=== PATIENT | female | born 1980 | race Caucasian/White ===

== ENCOUNTER 2017-03-01 17:10 | Emergency (ER) | payer OTHER ==
--- NOTE | 2017-03-01 17:45 | ED Physician Documentation ---
PD HPI ABD PAIN - Stated complaint Stated Complaint: LOW RT RIB PX - Chief complaint Chief Complaint: Abd Pain - History obtained from History obtained from: Patient - History of Present Illness Timing - onset: Other (2 days of right flank pain, she felt dizzy the other night but now it is just the pain. No urinary complaints.) Review of Systems Constitutional: reports: Fatigue. 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 - Present Medications Home Medications: Ambulatory Orders Medication Instructions Recorded Confirmed Meloxicam [Mobic] 7.5 mg PO BIDWM PRN #15 tablet 03/01/17 - Allergies Allergies/Adverse Reactions: Allergies Allergy/AdvReac Type Severity Reaction Status Date / Time aspirin Allergy Unknown Verified 03/01/17 17:22 - Social History Does the pt smoke?: No Smoking Status: Never smoker Does the pt drink ETOH?: No Does the pt have substance abuse?: No PD ED PE NORMAL - Vitals Vital signs reviewed: Yes - General General: Alert and oriented X 3, No acute distress - Abdomen Abdomen: Normal bowel sounds, Soft, Non tender - Back Back: Other (Tender to the right CVA) - Psych Psych: Normal mood, Normal affect Results - Vitals Vitals: Vital Signs - 24 hr 03/01/17 03/01/17 17:19 19:42 Temperature 37.3 C 37.2 C Heart Rate 105 H 90 Respiratory 17 18 Rate Blood Pressure 134/78 H 121/82 H O2 Saturation 99 100 Oxygen O2 Source Room air - Labs Labs: Laboratory Tests 03/01/17 03/01/17 03/01/17 17:20 18:35 18:35 WBC 6.3 RBC 4.87 Hgb 13.8 Hct 41.7 MCV 85.8 MCH 28.3 MCHC 33.0 RDW 13.3 Plt Count 330 MPV 7.6 L Neut # 3.1 Lymph # 2.6 [place] # 0.4 Eos # 0.1 Baso # 0.0 Absolute Nucleated RBC 0.00 Nucleated RBC % 0.1 Sodium 137 Potassium 3.7 Chloride 101 Carbon Dioxide 24 Anion Gap 12.0 BUN 12 Creatinine 0.6 Estimated GFR (MDRD) 114 Glucose 98 Calcium 9.4 Total Bilirubin 0.4 AST 19 ALT 16 Alkaline Phosphatase 67 Total Protein 8.5 H Albumin 4.3 Globulin 4.2 Albumin/Globulin Ratio 1.0 Lipase 17 L Urine Color YELLOW Urine Clarity CLEAR Urine pH 6.0 Ur Specific [place] <=1.005 Urine Protein NEGATIVE Urine Glucose (UA) NEGATIVE Urine Ketones TRACE Urine Occult Blood TRACE-INTA Urine Nitrite NEGATIVE Urine Bilirubin NEGATIVE Urine Urobilinogen 0.2 (NORMAL) Ur Leukocyte Esterase NEGATIVE Ur Microscopic Review NOT INDICATED Urine Culture Comments NOT INDICATED Urine HCG, Qual NEGATIVE - Rads (name of study) CT A/P Radiology: EMP read contemporaneously (normal) PD MEDICAL DECISION MAKING - ED course ED course: 37-year-old woman with right flank pain. Her urinalysis was negative and this was followed by advanced imaging and blood work without relevant findings. On further history it sounds like she has had recurrent symptoms like this for quite some time with previous negative workups. She had specific concerns about cancer given that her sibling also had similar symptoms and it turned out to be cancer but there is no evidence of this and she was reassured. Departure - Departure Disposition: 01 Home, Self Care Clinical Impression: Right flank pain Condition: Good Record reviewed to determine appropriate education?: Yes Instructions: Abdominal Pain Prescriptions: Meloxicam [Mobic] 7.5 mg PO BIDWM PRN #15 tablet PRN Reason: Pain Comments: Call your doctor to arrange a follow-up appointment, make the next available appointment. In the interim, return anytime if worse or if new symptoms develop. Your blood pressure was elevated today on check into the emergency department. This does not mean that you have hypertension, it is a common phenomenon to come to the emergency department and have elevated blood pressure. I recommend that you see your primary care physician within the week to have it rechecked when you are feeling better.
[2017-03-01 17:52] LABS: BILIRUBIN,URINE NEGATIVE (NEGATIVE); GLUCOSE, URINE (UA) NEGATIVE (NEGATIVE); KETONES,URINE (UA) TRACE mg/dL (NEGATIVE); LEUKOCYTE ESTERASE, URINE NEGATIVE (NEGATIVE); NITRITE,URINE NEGATIVE (NEGATIVE); OCCULT BLOOD,URINE TRACE-INTA (NEGATIVE); PROTEIN,URINE NEGATIVE (NEGATIVE); UROBILINOGEN,URINE 0.2 (NORMAL) E.U./dL (NORMAL)
[2017-03-01 17:55] LABS: CLARITY,URINE CLEAR (CLEAR); HCG UR QUAL NEGATIVE
[2017-03-01] MEDS ORDERED: KETOROLAC 60 MG/2 ML VIAL IVP STA (18:20)
[2017-03-01 18:53] LABS: BASOPHILS % (AUTO) 0.6 %; EOSINOPHILS # (AUTO) 0.1 10^3/uL (0.0-0.7); EOSINOPHILS % (AUTO) 1.8 %; HGB - HEMOGLOBIN 13.8 g/dL (12.0-16.0); LYMPHOCYTES # (AUTO) 2.6 10^3/uL (1.5-3.5); LYMPHOCYTES % (AUTO) 41.1 %; MEAN CORPUSCULAR HEMOGLOBIN 28.3 pg (27.0-31.0); MEAN CORPUSCULAR VOLUME 85.8 fL (81.0-99.0); MEAN PLATELET VOLUME 7.6 fL (7.9-10.8); MONOCYTES # (AUTO) 0.4 10^3/uL (0.0-1.0); MONOCYTES % (AUTO) 6.8 %; NEUTROPHILS # (AUTO) 3.1 10^3/uL (1.5-6.6); NEUTROPHILS % (AUTO) 49.7 %; PLT - PLATELET COUNT 330 10^3/uL (130-450); RED BLOOD COUNT 4.87 10^6/uL (4.20-5.40); RED CELL DISTRIBUTION WIDTH 13.3 % (12.0-15.0); WHITE BLOOD COUNT 6.3 x10^3/uL (4.8-10.8)
[2017-03-01 19:11] LABS: ALBUMIN 4.3 g/dL (3.2-5.5); BILIRUBIN,TOTAL 0.4 mg/dL (0.2-1.0); CALCIUM 9.4 mg/dL (8.5-10.3); CREATININE 0.6 mg/dL (0.4-1.0); TOTAL PROTEIN 8.5 g/dL (6.7-8.2)
[2017-03-01] MEDS ORDERED: IOPAMIDOL-300 100 ML VIAL ONE (19:21)
[2017-03-01] MEDS ORDERED: IOPAMIDOL-300 100 ML VIAL IVP ONE (19:43)
--- NOTE | 2017-03-01 20:24 | CT Report ---
EXAM: CT ABDOMEN AND PELVIS EXAM DATE: 03/01/2017 07:33 PM. CLINICAL HISTORY: Right abdominal pain COMPARISONS: None. TECHNIQUE: Routine helical CT imaging was performed through the abdomen and pelvis. IV contrast: 100 ML ISOVUE 300. Enteric contrast: No. Reconstructions: Coronal and sagittal. In accordance with CT protocol optimization, one or more of the following dose reduction techniques w ere utilized for this exam: automated exposure control, adjustment of mA and/or KV based on patient s ize, or use of iterative reconstructive technique. FINDINGS: Lung Bases: Unremarkable. Liver: Within normal limits. Normal variant focal fat adjacent to the falx from ligament. Gallbladder/Bile Ducts: Unremarkable. Spleen: Normal. Pancreas: Normal. Adrenal Glands: Normal. Kidneys: Normal. No masses or hydronephrosis. Peritoneal Cavity/Bowel: Normal. No free fluid, free air or adenopathy. No masses or acute inflammato ry process. Normal appendix. Pelvic Organs: Normal. The bladder and visualized pelvic organs are within normal limits. Vasculature: No aneurysms or other significant abnormality. Bones: No significant abnormality. IMPRESSION: Normal abdomen and pelvis CT. [facility] Referring Provider Line: [phone] SITE ID: [id number]
[2017-03-01 21:00] VITALS: BP 112/90
== END 2017-03-01 21:03 | disposition home or self-care (01) ==
LOC: ED 17:10
DX: R10.31 Right lower quadrant pain (principal); R03.0 Elevated blood-pressure reading, without diagnosis of hypertension; J45.909 Unspecified asthma, uncomplicated; E03.9 Hypothyroidism, unspecified
CPT/HCPCS: 36415; 74177; 80053; 81003; 81025; 83690; 85025; 96374; 99283; 99284; Q9967; 81001; 87086

== ENCOUNTER 2017-08-21 23:02 | Emergency (ER) | payer OTHER ==
[2017-08-21 23:09] VITALS: BP 126/76
[2017-08-21 23:22] LABS: LEUKOCYTE ESTERASE, URINE LARGE (NEGATIVE); OCCULT BLOOD,URINE MODERATE (NEGATIVE)
[2017-08-21 23:29] LABS: CLARITY,URINE HAZY (CLEAR)
[2017-08-21 23:31] LABS: BILIRUBIN,URINE NEGATIVE (NEGATIVE); ICTOTEST,URINE NEGATIVE; SQUAMOUS EPITHELIAL CELL,UR FEW Squamous (<= Few)
[2017-08-21 23:32] LABS: BACTERIA,URINE Few /HPF (None Seen)
[2017-08-21] MEDS ORDERED: cephALEXin 250 MG CAPSULE PO STA (23:41)
--- NOTE | 2017-08-21 23:41 | ED Physician Documentation ---
PD HPI FEMALE - Stated complaint Stated Complaint: FEMALE - Chief complaint Chief Complaint: UTI - History obtained from History obtained from: Patient - History of Present Illness Timing - onset: How many days ago (5) Timing - duration: Days (5) Timing - details: Gradual onset Pain level max: 5 Pain level max: 4 Associated symptoms: Fever (felt warm earlier), Back pain (low back), Dysuria, Urinary frequency. No: Pelvic pain, Vaginal pain, Vaginal bleeding, Vaginal discharge, Hematuria Contributing factors: No: Similar symptoms before: Diagnosis (UTI) Recently seen: Not recently seen Review of Systems Constitutional: denies: Chills, Myalgias Ears: denies: Ear pain Nose: denies: Rhinorrhea / runny nose, Congestion Throat: denies: Sore throat Cardiac: denies: Chest pain / pressure Respiratory: denies: Cough GI: denies: Vomiting, Diarrhea : denies: Discharge Skin: denies: Rash Musculoskeletal: denies: Neck pain Neurologic: denies: Headache PD PAST MEDICAL HISTORY - Past Medical History Past Medical History: Yes Respiratory: Asthma Endocrine/Autoimmune: HyPOthyroidism - Past Surgical History Past Surgical History: Yes 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 - Present Medications Home Medications: Ambulatory Orders Medication Instructions Recorded Confirmed Meloxicam [Mobic] 7.5 mg PO BIDWM PRN #15 tablet 03/01/17 Ciprofloxacin HCl [Cipro] 500 mg PO BID #20 tablet 08/21/17 Hydrocodone/Acetaminophen 1 - 2 each PO Q6H PRN #10 tablet 08/21/17 [Hydrocodon-Acetaminophen 5-325] Promethazine [Phenergan] 25 mg PO Q6H PRN #10 tab 08/21/17 - Allergies Allergies/Adverse Reactions: Allergies Allergy/AdvReac Type Severity Reaction Status Date / Time aspirin Allergy Unknown Verified 08/21/17 23:09 - Social History Does the pt smoke?: No Smoking Status: Never smoker Does the pt drink ETOH?: No Does the pt have substance abuse?: No PD ED PE NORMAL - Vitals Vital signs reviewed: Yes - General General: Alert and oriented X 3, No acute distress - HEENT HEENT: Moist mucous membranes - Neck Neck: Supple, no meningeal sign - Cardiac Cardiac: RRR - Respiratory Respiratory: No respiratory distress, Clear bilaterally - Abdomen Abdomen: Soft, Non tender, Non distended - Back Back: Other (R cvat) - Derm Derm: Warm and dry - Extremities Extremities: No edema - Neuro Neuro: Alert and oriented X 3 - Psych Psych: Normal mood, Normal affect Results - Vitals Vitals: Vital Signs - 24 hr 08/21/17 23:07 Temperature 36.8 C Heart Rate 96 Respiratory 18 Rate Blood Pressure 126/76 O2 Saturation 99 Oxygen O2 Source Room air - Labs Labs: Laboratory Tests 08/21/17 23:15 Urine Color ORANGE Urine Clarity HAZY Urine pH 7.0 Ur Specific [place] Urine Protein Urine Glucose (UA) Urine Ketones Urine Occult Blood MODERATE H Urine Nitrite Urine Bilirubin NEGATIVE Urine Urobilinogen Ur Leukocyte Esterase LARGE H Urine RBC 11-25 H Urine WBC 11-25 H Ur Squamous Epith Cells FEW Squamous Urine Bacteria Few Ur Microscopic Review INDICATED Urine Culture Comments INDICATED PD MEDICAL DECISION MAKING - ED course Complexity details: reviewed results, re-evaluated patient, considered differential, d/w patient ED course: Patient is a 37-year-old female who presents to the emergency department UTI symptoms for the past several days, now spreading up to the right flank. Concern for early pyelonephritis. She is very well-appearing, nontoxic. Tolerating p.o. without difficulty here. Will place on ciprofloxacin, Phenergan and pain medication for home. Patient counseled regarding signs and symptoms for which I believe and urgent re-evaluation would be necessary. Patient with good understanding of and agreement to plan and is comfortable going home at this time This document was made in part using voice recognition software. While efforts are made to proofread this document, sound alike and grammatical errors may occur. Afebrile. No evidence of ureteral stone, urosepsis. - Sepsis Event Vital Signs: Vital Signs - 24 hr 08/21/17 23:07 Temperature 36.8 C Heart Rate 96 Respiratory 18 Rate Blood Pressure 126/76 O2 Saturation 99 Oxygen O2 Source Room air Departure - Departure Disposition: 01 Home, Self Care Clinical Impression: Pyelonephritis Condition: Good Instructions: ED Kidney Infec Female Follow-Up: your,doctor in 1 week if not better [Other] Prescriptions: Ciprofloxacin HCl [Cipro] 500 mg PO BID #20 tablet Hydrocodone/Acetaminophen [Hydrocodon-Acetaminophen 5-325] 1 - 2 each PO Q6H PRN #10 tablet PRN Reason: pain Promethazine [Phenergan] 25 mg PO Q6H PRN #10 tab PRN Reason: Nausea / Vomiting Comments: Return if you worsen. Take all antibiotics until gone. Do not drink alcohol or drive while on narcotic pain medicine. Note that many narcotic pain relievers also contain tylenol/acetaminophen. Please ensure that your total dose of acetaminophen from all sources does not exceed 3 grams (3000mg) per day. You may constipated on this medication, take a stool softener such as "Colace" twice a day while you are on it. Also recommend a [id number] laxative such as senna or MiraLAX any day that you do not have a bowel movement. If you received narcotic pain medication in the emergency department, do not drive or operate machinery for the next 24 hours. The Phenergan may also make you drowsy, do not drive or drink alcohol while taking this either.
[2017-08-21] MEDS ORDERED: HYDROcod/ACETAM 5/325 MG TABLET PO STA (23:46)
[2017-08-21] MEDS ORDERED: CIPROFLOXACIN 250 MG TABLET PO STA (23:46)
[2017-08-21] MEDS ORDERED: ONDANSETRON ODT 4 MG TABLET TL STA (23:46)
== END 2017-08-21 23:59 | disposition home or self-care (01) ==
LOC: ED 23:02
DX: N12 Tubulo-interstitial nephritis, not specified as acute or chronic (principal)
CPT/HCPCS: 81001; 81003; 87086; 87181; 99283

== ENCOUNTER 2017-12-26 13:41 | Outpatient (CLI) | payer OTHER | END 2017-12-26 13:42 | disposition critical access hospital (66) | LOC: EMS 13:41 | PROVIDERS: ATTEND Surgery | DX: R00.2 Palpitations (principal); R42 Dizziness and giddiness; R51 Headache | CPT/HCPCS: A0425; A0429 ==

== ENCOUNTER 2017-12-26 14:06 | Emergency (ER) | payer OTHER ==
[2017-12-26] MEDS ORDERED: SODIUM CHLORIDE 0.9% 1,000 ML IV ONE (15:13)
--- NOTE | 2017-12-26 15:15 | ED Physician Documentation ---
History of Present Illness - Stated complaint Stated Complaint: PALPITATIONS - Chief complaint Chief Complaint: Cardiac - History obtained from History obtained from: Patient - History of Present Illness Timing: Today - Additonal information Additional information: 37-year-old female who has been experiencing some sweats for the past several months as developed acute palpitations today while sitting on her couch. She went to her school with her son and while she dropped him off she experiences palpitations doing extreme extent and the ambulance was called to the school. She feels her heart rate is rapid and irregular. She feels some shortness of breath when this is happening as well and she feels like she will pass out. She felt like she was going to . Review of Systems Constitutional: reports: Fever, Chills, Fatigue, Sweats Eyes: denies: Decreased vision Ears: denies: Ear pain Nose: reports: Congestion Throat: denies: Sore throat Cardiac: denies: Chest pain / pressure, Palpitations Respiratory: reports: Dyspnea. 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: Breast 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 - Present Medications Home Medications: Ambulatory Orders Medication Instructions Recorded Confirmed Meloxicam [Mobic] 7.5 mg PO BIDWM PRN #15 tablet 03/01/17 Ciprofloxacin HCl [Cipro] 500 mg PO BID #20 tablet 08/21/17 Hydrocodone/Acetaminophen 1 - 2 each PO Q6H PRN #10 tablet 08/21/17 [Hydrocodon-Acetaminophen 5-325] Promethazine [Phenergan] 25 mg PO Q6H PRN #10 tab 08/21/17 - Allergies Allergies/Adverse Reactions: Allergies Allergy/AdvReac Type Severity Reaction Status Date / Time aspirin Allergy Unknown Verified 08/21/17 23:09 - Social History Does the pt smoke?: No Smoking Status: Never smoker Does the pt drink ETOH?: No Does the pt have substance abuse?: No - Immunizations Immunizations are current?: Yes - POLST Patient has POLST: No PD ED PE NORMAL - Vitals Vital signs reviewed: Yes (hypertensive ) - General General: Alert and oriented X 3, Well developed/nourished, Other (The patient appears to be anxious) - HEENT HEENT: Atraumatic, PERRL, EOMI - Neck Neck: Supple, no meningeal sign - Cardiac Cardiac: RRR, No murmur - Respiratory Respiratory: No respiratory distress, Clear bilaterally - Abdomen Abdomen: Soft, Non tender - Back Back: No CVA TTP, No spinal TTP - Derm Derm: Normal color, Warm and dry, No rash - Extremities Extremities: No deformity, No edema - Neuro Neuro: Alert and oriented X 3, senior linux unix engineer 2-12 intact, No motor deficit, No sensory deficit, Normal speech Eye Opening: Spontaneous Motor: Obeys Commands Verbal: Oriented GCS Score: 15 - Psych Psych: Normal mood, Normal affect Results - Vitals Vitals: Vital Signs - 24 hr 12/26/17 12/26/17 14:16 15:44 Temperature 37.1 C Heart Rate 87 78 Respiratory 18 18 Rate Blood Pressure 129/89 H 118/79 O2 Saturation 100 100 Oxygen O2 Source Room air - EKG (time done) 1427 Rate: Rate (enter#) (82) Rhythm: NSR Intervals: Normal [place] Compare to prior EKG: Old EKG unavailable Computer interpretation: Agree with computer - Labs Labs: Laboratory Tests 12/26/17 12/26/17 12/26/17 14:27 15:37 15:37 WBC 6.3 RBC 4.30 Hgb 12.5 Hct 36.6 L MCV 85.1 MCH 29.1 MCHC 34.2 RDW 13.3 Plt Count 253 MPV 7.9 Neut # (Auto) 3.8 Lymph # (Auto) 1.9 [place] # (Auto) 0.4 Eos # (Auto) 0.1 Baso # (Auto) 0.0 Absolute Nucleated RBC 0.00 Nucleated RBC % 0.0 Sodium 138 Potassium 3.4 L Chloride 106 Carbon Dioxide 25 Anion Gap 7.0 BUN 9 Creatinine 0.5 Estimated GFR (MDRD) 140 Glucose 89 Calcium 8.6 Total Bilirubin 0.7 AST 20 ALT 19 Alkaline Phosphatase 56 Troponin I Total Protein 7.5 Albumin 3.8 Globulin 3.7 Albumin/Globulin Ratio 1.0 Lipase 22 TSH Urine Color LT. YELLOW Urine Clarity CLEAR Urine pH 6.0 Ur Specific [place] <=1.005 Urine Protein NEGATIVE Urine Glucose (UA) NEGATIVE Urine Ketones NEGATIVE Urine Occult Blood NEGATIVE Urine Nitrite NEGATIVE Urine Bilirubin NEGATIVE Urine Urobilinogen 0.2 (NORMAL) Ur Leukocyte Esterase NEGATIVE Ur Microscopic Review NOT INDICATED Urine Culture Comments NOT INDICATED Urine HCG, Qual NEGATIVE 12/26/17 12/26/17 15:37 15:37 WBC RBC Hgb Hct MCV MCH MCHC RDW Plt Count MPV Neut # (Auto) Lymph # (Auto) [place] # (Auto) Eos # (Auto) Baso # (Auto) Absolute Nucleated RBC Nucleated RBC % Sodium Potassium Chloride Carbon Dioxide Anion Gap BUN Creatinine Estimated GFR (MDRD) Glucose Calcium Total Bilirubin AST ALT Alkaline Phosphatase Troponin I < 0.04 Total Protein Albumin Globulin Albumin/Globulin Ratio Lipase TSH 1.34 Urine Color Urine Clarity Urine pH Ur Specific [place] Urine Protein Urine Glucose (UA) Urine Ketones Urine Occult Blood Urine Nitrite Urine Bilirubin Urine Urobilinogen Ur Leukocyte Esterase Ur Microscopic Review Urine Culture Comments Urine HCG, Qual - Rads (name of study) chest 1 veiw Radiology: Prelim report reviewed (Impression: Normal single view chest.), EMP read indepedently, See rad report Procedures - IVC sono (time) 1505 Bedside IVC sono: IVC measures (cm) (0.88), IVC collapsed c insp (cm) (complete), Dehydration (est 1-2 liter deficit) PD MEDICAL DECISION MAKING - ED course Complexity details: reviewed results, re-evaluated patient, considered differential, d/w patient, d/w family ED course: 37-year-old female with acute onset of palpitations describes dramatic reaction to the palpitations concerning for a panic attack. She has a negative workup here today including monitoring showing sinus rhythm has been normal. She is dehydrated on interrogation of the IVC and she is administered IV saline. I discussed with her the panic attack is a diagnosis of exclusion and she will need to follow-up with her primary for further evaluation of palpitations. I have asked her to begin wearing a fit bit as well. She will have follow up with the fugitive detective as planned previously. Departure - Departure Disposition: 01 Home, Self Care Clinical Impression: Palpitations, Panic attack, Dehydration Condition: Stable Instructions: ED Panic Attack, ED Stress React, ED Palpitations, ED Dehydration Follow-Up: MARY Ferris [Provider Group]
[2017-12-26 15:41] LABS: BILIRUBIN,URINE NEGATIVE (NEGATIVE); GLUCOSE, URINE (UA) NEGATIVE (NEGATIVE); KETONES,URINE (UA) NEGATIVE (NEGATIVE); LEUKOCYTE ESTERASE, URINE NEGATIVE (NEGATIVE); NITRITE,URINE NEGATIVE (NEGATIVE); OCCULT BLOOD,URINE NEGATIVE (NEGATIVE); PROTEIN,URINE NEGATIVE (NEGATIVE); UROBILINOGEN,URINE 0.2 (NORMAL) E.U./dL (NORMAL)
[2017-12-26 15:42] LABS: CLARITY,URINE CLEAR (CLEAR)
[2017-12-26 15:43] LABS: HCG UR QUAL NEGATIVE
[2017-12-26 15:45] LABS: BASOPHILS % (AUTO) 0.7 %; EOSINOPHILS # (AUTO) 0.1 10^3/uL (0.0-0.7); EOSINOPHILS % (AUTO) 1.8 %; HGB - HEMOGLOBIN 12.5 g/dL (12.0-16.0); LYMPHOCYTES # (AUTO) 1.9 10^3/uL (1.5-3.5); LYMPHOCYTES % (AUTO) 30.1 %; MEAN CORPUSCULAR HEMOGLOBIN 29.1 pg (27.0-31.0); MEAN CORPUSCULAR HGB CONC 34.2 g/dL (32.0-36.0); MEAN CORPUSCULAR VOLUME 85.1 fL (81.0-99.0); MEAN PLATELET VOLUME 7.9 fL (7.9-10.8); MONOCYTES # (AUTO) 0.4 10^3/uL (0.0-1.0); MONOCYTES % (AUTO) 6.7 %; NEUTROPHILS # (AUTO) 3.8 10^3/uL (1.5-6.6); NEUTROPHILS % (AUTO) 60.7 %; PLT - PLATELET COUNT 253 10^3/uL (130-450); RED CELL DISTRIBUTION WIDTH 13.3 % (12.0-15.0); WHITE BLOOD COUNT 6.3 x10^3/uL (4.8-10.8)
[2017-12-26 16:00] LABS: ALBUMIN 3.8 g/dL (3.2-5.5); BILIRUBIN,TOTAL 0.7 mg/dL (0.2-1.0); CALCIUM 8.6 mg/dL (8.5-10.3); CREATININE 0.5 mg/dL (0.4-1.0); TOTAL PROTEIN 7.5 g/dL (6.7-8.2)
[2017-12-26 16:26] VITALS: BP 114/78
--- NOTE | 2017-12-26 16:28 | XRAY Report ---
Reason: palpitations Procedure Date: 12/26/2017 Accession Number: [id number] / [id number] Procedure: XR - Chest 1 View X-Ray CPT Code: 86962 FULL RESULT: EXAM: CHEST RADIOGRAPHY EXAM DATE: 12/26/2017 04:11 PM. CLINICAL HISTORY: Palpitations. COMPARISON: None. TECHNIQUE: 1 view. FINDINGS: Lungs/Pleura: No focal opacities evident. No pleural effusion. No pneumothorax. Mediastinum: Within exam limitations, the cardiomediastinal contour is normal. Other: None. IMPRESSION: Normal single view chest. [facility]
== END 2017-12-26 16:59 | disposition home or self-care (01) ==
LOC: EDUNIT# → ED 14:06
DX: F41.0 Panic disorder [episodic paroxysmal anxiety] (principal); R00.2 Palpitations; E86.0 Dehydration
CPT/HCPCS: 36415; 71045; 80053; 81001; 81003; 81025; 83690; 84443; 84484; 85025; 87086; 93005; 96360; 99283; 99284

== ENCOUNTER 2018-01-07 12:39 | Emergency (ER) | payer OTHER ==
[2018-01-07 13:22] LABS: BASOPHILS % (AUTO) 0.6 %; EOSINOPHILS # (AUTO) 0.3 10^3/uL (0.0-0.7); EOSINOPHILS % (AUTO) 3.9 %; HGB - HEMOGLOBIN 12.9 g/dL (12.0-16.0); LYMPHOCYTES # (AUTO) 2.3 10^3/uL (1.5-3.5); LYMPHOCYTES % (AUTO) 33.2 %; MEAN CORPUSCULAR HGB CONC 33.8 g/dL (32.0-36.0); MEAN CORPUSCULAR VOLUME 85.7 fL (81.0-99.0); MEAN PLATELET VOLUME 7.7 fL (7.9-10.8); MONOCYTES # (AUTO) 0.4 10^3/uL (0.0-1.0); MONOCYTES % (AUTO) 6.4 %; NEUTROPHILS # (AUTO) 3.9 10^3/uL (1.5-6.6); NEUTROPHILS % (AUTO) 55.9 %; PLT - PLATELET COUNT 292 10^3/uL (130-450); RED BLOOD COUNT 4.45 10^6/uL (4.20-5.40); RED CELL DISTRIBUTION WIDTH 13.4 % (12.0-15.0); WHITE BLOOD COUNT 6.9 x10^3/uL (4.8-10.8)
[2018-01-07 13:42] LABS: BILIRUBIN,TOTAL 0.7 mg/dL (0.2-1.0); CALCIUM 8.8 mg/dL (8.5-10.3); CREATININE 0.7 mg/dL (0.4-1.0)
--- NOTE | 2018-01-07 15:46 | ED Physician Documentation ---
History of Present Illness - Stated complaint Stated Complaint: HEART PALPITATION - Chief complaint Chief Complaint: Cardiac - History obtained from History obtained from: Patient - History of Present Illness Timing: How many days ago (several days) Pain level max: 0 Pain level now: 0 - Additonal information Additional information: Patient is a 38-year-old female has been having heart palpitations for quite some time. She was seen here recently for same. Normal laboratory testing at that time including her thyroid studies. She has an appointment with her doctor on Sunday. States that sometimes her heart feels like it races and/or skipped beats. She does not have any significant chest pain. Denies any stimulants. Has not had any syncopal events. Has not been near syncopal either. Nothing makes it better or worse. 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 - Present Medications Home Medications: Ambulatory Orders Medication Instructions Recorded Confirmed Meloxicam [Mobic] 7.5 mg PO BIDWM PRN #15 tablet 03/01/17 Ciprofloxacin HCl [Cipro] 500 mg PO BID #20 tablet 08/21/17 Hydrocodone/Acetaminophen 1 - 2 each PO Q6H PRN #10 tablet 08/21/17 [Hydrocodon-Acetaminophen 5-325] Promethazine [Phenergan] 25 mg PO Q6H PRN #10 tab 08/21/17 Famotidine [Pepcid] 20 mg PO BID #60 tablet 01/07/18 - Allergies Allergies/Adverse Reactions: Allergies Allergy/AdvReac Type Severity Reaction Status Date / Time aspirin Allergy Unknown Verified 01/07/18 13:02 - Social History Does the pt smoke?: No Smoking Status: Never smoker Does the pt drink ETOH?: No Does the pt have substance abuse?: No - Immunizations Immunizations are current?: Yes - POLST Patient has POLST: No PD ED PE NORMAL - Vitals Vital signs reviewed: Yes - General General: Alert and oriented X 3, No acute distress - HEENT HEENT: Moist mucous membranes - Neck Neck: Supple, no meningeal sign - Cardiac Cardiac: RRR, No murmur, Strong equal pulses - Respiratory Respiratory: No respiratory distress, Clear bilaterally - Abdomen Abdomen: Soft, Non tender, Non distended - Back Back: No CVA TTP, No spinal TTP - Derm Derm: Warm and dry - Extremities Extremities: No edema, No calf tenderness / cord - Neuro Neuro: Alert and oriented X 3 - Psych Psych: Normal mood, Normal affect Results - Vitals Vitals: Oxygen O2 Source Room air - EKG (time done) 1254 Rate: Rate (enter#) (90) Rhythm: NSR [place]: Normal Intervals: Normal [place] QRS: Normal Ischemia: Normal ST segments - Labs Labs: Laboratory Tests 01/07/18 01/07/18 01/07/18 13:15 13:15 13:15 WBC 6.9 RBC 4.45 Hgb 12.9 Hct 38.1 MCV 85.7 MCH 29.0 MCHC 33.8 RDW 13.4 Plt Count 292 MPV 7.7 L Neut # (Auto) 3.9 Lymph # (Auto) 2.3 [place] # (Auto) 0.4 Eos # (Auto) 0.3 Baso # (Auto) 0.0 Absolute Nucleated RBC 0.00 Nucleated RBC % 0.0 Sodium 136 Potassium 3.2 L Chloride 103 Carbon Dioxide 25 Anion Gap 8.0 BUN 13 Creatinine 0.7 Estimated GFR (MDRD) 95 Glucose 89 Calcium 8.8 Total Bilirubin 0.7 AST 16 ALT 16 Alkaline Phosphatase 61 Troponin I < 0.04 Total Protein 8.0 Albumin 4.0 Globulin 4.0 Albumin/Globulin Ratio 1.0 Lipase 27 Urine Color Urine Clarity Urine pH Ur Specific [place] Urine Protein Urine Glucose (UA) Urine Ketones Urine Occult Blood Urine Nitrite Urine Bilirubin Urine Urobilinogen Ur Leukocyte Esterase Ur Microscopic Review Urine Culture Comments Urine HCG, Qual 01/07/18 01/07/18 15:30 15:30 WBC RBC Hgb Hct MCV MCH MCHC RDW Plt Count MPV Neut # (Auto) Lymph # (Auto) [place] # (Auto) Eos # (Auto) Baso # (Auto) Absolute Nucleated RBC Nucleated RBC % Sodium Potassium Chloride Carbon Dioxide Anion Gap BUN Creatinine Estimated GFR (MDRD) Glucose Calcium Total Bilirubin AST ALT Alkaline Phosphatase Troponin I Total Protein Albumin Globulin Albumin/Globulin Ratio Lipase Urine Color YELLOW Urine Clarity CLEAR Urine pH 6.5 Ur Specific [place] 1.020 1.020 Urine Protein NEGATIVE Urine Glucose (UA) NEGATIVE Urine Ketones NEGATIVE Urine Occult Blood NEGATIVE Urine Nitrite NEGATIVE Urine Bilirubin NEGATIVE Urine Urobilinogen 0.2 (NORMAL) Ur Leukocyte Esterase NEGATIVE Ur Microscopic Review NOT INDICATED Urine Culture Comments NOT INDICATED Urine HCG, Qual NEGATIVE PD MEDICAL DECISION MAKING - ED course Complexity details: reviewed old records, reviewed results, re-evaluated patient, considered differential, d/w patient ED course: Patient is a 38-year-old female with intermittent palpitations. No acute findings on EKG or laboratory testing other than very minimal hypokalemia. We will have her follow-up with her doctor for her Holter monitor. She will return if she worsens. Patient counseled regarding signs and symptoms for which I believe and urgent re-evaluation would be necessary. Patient with good understanding of and agreement to plan and is comfortable going home at this time This document was made in part using voice recognition software. While efforts are made to proofread this document, sound alike and grammatical errors may occur. Departure - Departure Disposition: 01 Home, Self Care Clinical Impression: Heart palpitations Condition: Good Instructions: ED Palpitations Follow-Up: Provider,Other [Primary Care Provider] - 01/11/18 Prescriptions: Famotidine [Pepcid] 20 mg PO BID #60 tablet Comments: You should discuss a Holter monitor with your doctor for your palpitations. Return if you worsen. Discharge Date/Time: 01/07/18 16:03
[2018-01-07 15:52] LABS: BILIRUBIN,URINE NEGATIVE (NEGATIVE); GLUCOSE, URINE (UA) NEGATIVE (NEGATIVE); KETONES,URINE (UA) NEGATIVE (NEGATIVE); LEUKOCYTE ESTERASE, URINE NEGATIVE (NEGATIVE); NITRITE,URINE NEGATIVE (NEGATIVE); OCCULT BLOOD,URINE NEGATIVE (NEGATIVE); PH,URINE 6.5 PH (5.0-7.5); PROTEIN,URINE NEGATIVE (NEGATIVE); UROBILINOGEN,URINE 0.2 (NORMAL) E.U./dL (NORMAL)
[2018-01-07 15:54] LABS: CLARITY,URINE CLEAR (CLEAR); HCG UR QUAL NEGATIVE
[2018-01-07 16:02] VITALS: BP 123/78
== END 2018-01-07 16:03 | disposition home or self-care (01) ==
LOC: ED 12:39
DX: R00.2 Palpitations (principal); E87.6 Hypokalemia
CPT/HCPCS: 36415; 80053; 81001; 81003; 81025; 83690; 84484; 85025; 87086; 93005; 99283

== ENCOUNTER 2018-10-08 10:56 | Emergency (ER) | payer OTHER ==
[2018-10-08 11:07] VITALS: BP 133/92
[2018-10-08] MEDS ORDERED: DEXAMETHASONE 10 MG/ML VIAL PO STA (12:35)
[2018-10-08] MEDS ORDERED: ALBUTEROL NEB 2.5 MG/3 ML INH STA (12:35)
[2018-10-08] MEDS ORDERED: CHERRY SYRUP 10 ML UDC PO ONE (12:35)
[2018-10-08] MEDS ORDERED: BENZONATATE 100 MG CAPSULE PO STA (12:36)
--- NOTE | 2018-10-08 12:46 | ED Physician Documentation ---
PD HPI URI - Stated complaint Stated Complaint: NECK/FACIAL SWELLING - Chief complaint Chief Complaint: Resp - History obtained from History obtained from: Patient - History of Present Illness Timing - onset: How many days ago (6) Timing duration: Days (6) Timing details: Gradual onset Pain level max: 0 Pain level now: 0 Associated symptoms: Fever (Subjective), Chills, Sweats, Nasal congestion, Rhinorrhea, Sore throat, Swollen nodes, Productive cough (Green phlegm), Dyspnea (Wheezing, used an inhaler last night without relief). No: Hemoptysis, Chest pain Contributing factors: Immunocompromised (She is on mycophenolate and Plaquenil for possible Sjogren's syndrome) Improves by: Rest Worsened by: Activity, Breathing Recently seen: Not recently seen Review of Systems Ten Systems: 10 systems reviewed and negative Constitutional: reports: Fever, Chills GI: denies: Vomiting, Diarrhea Skin: denies: Rash Musculoskeletal: denies: Neck pain, Back pain Neurologic: denies: Focal weakness, Numbness, Headache PD PAST MEDICAL HISTORY - Past Medical History Cardiovascular: None Respiratory: Asthma Neuro: None Endocrine/Autoimmune: None GI: None 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 : None HEENT: None Psych: None Musculoskeletal: Rheumatoid arthritis Derm: None - Past Surgical History Past Surgical History: Yes General: Colonoscopy /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 ANALYST: Breast reduction - Present Medications Home Medications: Ambulatory Orders Medication Instructions Recorded Confirmed Meloxicam [Mobic] 7.5 mg PO BIDWM PRN #15 tablet 03/01/17 Ciprofloxacin HCl [Cipro] 500 mg PO BID #20 tablet 08/21/17 Hydrocodone/Acetaminophen 1 - 2 each PO Q6H PRN #10 tablet 08/21/17 [Hydrocodon-Acetaminophen 5-325] Promethazine [Phenergan] 25 mg PO Q6H PRN #10 tab 08/21/17 Famotidine [Pepcid] 20 mg PO BID #60 tablet 01/07/18 Albuterol Sulf [Ventolin Hfa 1 - 2 puffs INH Q4HR PRN #1 inhaler 10/08/18 Inhaler] Benzonatate [Tessalon Perle] 100 - 200 mg PO TID PRN #30 capsule 10/08/18 Doxycycline Hyclate 100 mg PO BID #20 capsule 10/08/18 predniSONE [Prednisone] 20 mg PO DAILY #10 tablet 10/08/18 - Allergies Allergies/Adverse Reactions: Allergies Allergy/AdvReac Type Severity Reaction Status Date / Time aspirin Allergy Unknown Verified 10/08/18 11:07 - Social History Does the pt smoke?: No Smoking Status: Never smoker Does the pt drink ETOH?: No Does the pt have substance abuse?: No - Immunizations Immunizations are current?: Yes - POLST Patient has POLST: No PD ED PE NORMAL - Vitals Vital signs reviewed: Yes - General General: Alert and oriented X 3, No acute distress, Well developed/nourished - HEENT HEENT: PERRL, Ears normal, Moist mucous membranes, Other (Mild posterior pharyngeal erythema without tonsillar exudates. Uvula midline. small blisters on lips) - Neck Neck: Supple, no meningeal sign, Other (Mild cervical lymphadenopathy) - Cardiac Cardiac: RRR, Strong equal pulses - Respiratory Respiratory: No respiratory distress, Other (Mild wheezing and crackles bilaterally) - Abdomen Abdomen: Soft, Non tender, Non distended - Derm Derm: Warm and dry - Extremities Extremities: No edema - Neuro Neuro: Alert and oriented X 3 - Psych Psych: Normal mood, Normal affect Results - Vitals Vitals: Vital Signs - 24 hr 10/08/18 10/08/18 11:05 12:58 Temperature 36.2 C L Heart Rate 102 H 96 Respiratory 19 18 Rate Blood Pressure 133/92 H O2 Saturation 99 Oxygen O2 Source Room air - Rads (name of study) cxr Radiology: Prelim report reviewed, EMP read contemporaneously, See rad report (normal) PD MEDICAL DECISION MAKING - ED course Complexity details: reviewed results, re-evaluated patient (Improved aeration after nebulizer treatment), considered differential, d/w patient ED course: Patient is well-appearing, nontoxic. Concern for atypical pneumonia given her immunocompromise status. Will place on antibiotics. She also appears to have a herpes simplex outbreak around her mouth. She has Zovirax for home. Patient c ounseled regarding signs and symptoms for which I believe and urgent re- evaluation would be necessary. Patient with good understanding of and agreement to plan and is comfortable going home at this time This document was made in part using voice recognition software. While efforts are made to proofread this document, sound alike and grammatical errors may occur. Departure - Departure Disposition: 01 Home, Self Care Clinical Impression: Atypical pneumonia, Herpes simplex Condition: Good Instructions: ED Pneumonia Adult, ED Herpes Simplex Virus Type 1 Follow-Up: your,doctor in 1 week [Other] Prescriptions: Albuterol Sulf [Ventolin Hfa Inhaler] 1 - 2 puffs INH Q4HR PRN #1 inhaler PRN Reason: Shortness Of Air/Wheezing Benzonatate [Tessalon Perle] 100 - 200 mg PO TID PRN #30 capsule PRN Reason: Cough Doxycycline Hyclate 100 mg PO BID #20 capsule predniSONE [Prednisone] 20 mg PO DAILY #10 tablet Comments: Use the medications as prescribed. Take all antibiotics until gone. Return if you worsen. Follow-up with your doctor for further care. Discharge Date/Time: 10/08/18 14:13
--- NOTE | 2018-10-08 13:22 | XRAY Report ---
Reason: cough Procedure Date: 10/08/2018 Accession Number: [id number] / [id number] Procedure: XR - Chest 2 View X-Ray CPT Code: 19169 FULL RESULT: EXAM: CHEST RADIOGRAPHY EXAM DATE: 10/08/2018 01:02 PM. CLINICAL HISTORY: Cough. COMPARISON: CHEST 1 VIEW 12/26/2017 4:03 PM. TECHNIQUE: 2 views. FINDINGS: Lungs/Pleura: No focal opacities evident. No pleural effusion. No pneumothorax. Normal volumes. Mediastinum: Heart and mediastinal contours are unremarkable. Other: None. IMPRESSION: Normal 2-view chest radiography. RADIA
== END 2018-10-08 14:13 | disposition home or self-care (01) ==
LOC: ED 10:56
DX: J18.9 Pneumonia, unspecified organism (principal); B00.1 Herpesviral vesicular dermatitis
CPT/HCPCS: 71046; 94150; 94640; 99283; 99284; A9270

== ENCOUNTER 2018-11-07 11:56 | Outpatient (CLI) | payer OTHER ==
[2018-11-07] MEDS ORDERED: GADOBUTROL 10 MMOL/10 ML VIAL ONE (13:26)
[2018-11-07] MEDS ORDERED: GADOBUTROL 10 MMOL/10 ML VIAL IVP ONE (13:27)
--- NOTE | 2018-11-07 14:05 | MRI Report ---
Reason: SICCA SYNDROME Procedure Date: 11/07/2018 Accession Number: [id number] / [id number] Procedure: MRI - Neck Soft Tissue W/WO CPT Code: FULL RESULT: EXAM: MRI SOFT TISSUE NECK WITHOUT AND WITH CONTRAST EXAM DATE: 11/07/2018 01:39 PM. CLINICAL HISTORY: 38-year-old female. SICCA SYNDROME. Swollen lymph nodes. COMPARISON: None. TECHNIQUE: Multiplanar, multisequence T1-weighted and fluid-sensitive MR sequences of the neck soft tissues were performed without and with intravenous contrast. Other: None. IV Contrast: 8 ML Gadavist. FINDINGS: Skull Base: Visualized intracranial contents and orbits are unremarkable. The skull base is intact. The visualized sinuses are clear. Pharynx and Oral Cavity: The pharyngeal mucosa is unremarkable. The infratemporal fossa, parapharyngeal spaces, and retropharyngeal space are unremarkable. The base of the tongue is symmetric. No mass lesion. The floor of the mouth is symmetric and unremarkable. The airway is patent. Larynx: The larynx and supraglottic airway are patent without mass lesion. The vocal cords are symmetric. The visualized trachea is unremarkable. Parotid and Submandibular Glands: Symmetric and unremarkable. Lymph Nodes and Soft Tissues: Few mildly prominent upper cervical lymph nodes bilaterally, for example left level 2A node measuring 18 x 10 mm (series 601 image 23) and right level 2A node measuring 13 x 9 mm (series 601 image 23) No masses or swelling. Vasculature: Intact. Bones: Normal. Other: The upper chest and thoracic inlet are unremarkable. The thyroid is unremarkable. IMPRESSION: 1. No evidence soft tissue mass, abscess, or definite mucosal abnormality. The parotid and submandibular glands have normal MRI appearance. 2. Few mildly prominent upper cervical lymph nodes bilaterally, for example left level 2A node measuring 18 x 10 mm (series 601 image 23) and right level 2A node measuring 13 x 9 mm (series 601 image 23). These are nonspecific, may be reactive. RADIA
== END 2018-11-07 11:57 | disposition home or self-care (01) ==
LOC: DI 11:56
PROVIDERS: ATTEND Nurse Practitioner Family
DX: M35.00 Sjogren syndrome, unspecified (principal); R59.0 Localized enlarged lymph nodes
CPT/HCPCS: 70543; A9585

== ENCOUNTER 2018-11-20 23:21 | Emergency (ER) | payer OTHER ==
[2018-11-20] MEDS ORDERED: IBUPROFEN 600 MG TABLET PO STA (23:30)
--- NOTE | 2018-11-20 23:35 | ED Physician Documentation ---
History of Present Illness - Stated complaint Stated Complaint: RIGHT LEG BURN - Chief complaint Chief Complaint: Burn - History obtained from History obtained from: Patient - Additonal information Additional information: This is a 38-year-old woman who presents with her children complaints that she dropped a coppola of boiling water on her right leg and foot. This happened approximately an hour and a half prior to presentation. She had on jeans when it happened and she took the jeans off the blister came with it partially on her lower leg. She put her leg and cold water but did not take anything for the pain and because the pain was not getting any better came into the emergency department. She is uncertain when her last tetanus vaccine was. She cannot take aspirin because it causes swelling but she has had ibuprofen in the past without any reaction. 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 : None HEENT: None Psych: None Musculoskeletal: Rheumatoid arthritis Derm: None - Past Surgical History Past Surgical History: Yes General: Colonoscopy /CARDIOGRAPH OPERATOR: Breast reduction - Present Medications Home Medications: Ambulatory Orders Medication Instructions Recorded Confirmed Meloxicam [Mobic] 7.5 mg PO BIDWM PRN #15 tablet 03/01/17 Ciprofloxacin HCl [Cipro] 500 mg PO BID #20 tablet 08/21/17 Hydrocodone/Acetaminophen 1 - 2 each PO Q6H PRN #10 tablet 08/21/17 [Hydrocodon-Acetaminophen 5-325] Promethazine [Phenergan] 25 mg PO Q6H PRN #10 tab 08/21/17 Famotidine [Pepcid] 20 mg PO BID #60 tablet 01/07/18 Albuterol Sulf [Ventolin Hfa 1 - 2 puffs INH Q4HR PRN #1 inhaler 10/08/18 Inhaler] Benzonatate [Tessalon Perle] 100 - 200 mg PO TID PRN #30 capsule 10/08/18 Doxycycline Hyclate 100 mg PO BID #20 capsule 10/08/18 predniSONE [Prednisone] 20 mg PO DAILY #10 tablet 10/08/18 Hydrocodone/Acetaminophen 1 - 2 each PO Q6H PRN #6 tablet 11/21/18 [Hydrocodon-Acetaminophen 5-325] - Allergies Allergies/Adverse Reactions: Allergies Allergy/AdvReac Type Severity Reaction Status Date / Time aspirin Allergy Unknown Verified 11/20/18 23:23 - Social History Does the pt smoke?: No Smoking Status: Never smoker Does the pt drink ETOH?: No Does the pt have substance abuse?: No - Immunizations Immunizations are current?: Yes - POLST Patient has POLST: No PD ED PE NORMAL - Vitals Vital signs reviewed: Yes - General General: Alert and oriented X 3, Well developed/nourished, Other (Crying in pain) - Derm Derm: Other (There is a partial-thickness burn on the anterior lateral right calfAnd superficial and partial-thickness mckee over the dorsal aspect of the right foot with some intact blistering. Total body surface area of partial- thickness burning estimated at less than 2%) Results - Vitals Vitals: Vital Signs - 24 hr 11/20/18 11/20/18 11/21/18 23:23 23:26 01:05 Temperature 36.7 C Heart Rate 130 H 106 H 96 Respiratory 20 16 Rate Blood Pressure 145/97 H 136/80 H O2 Saturation 98 99 Oxygen O2 Source Room air PD MEDICAL DECISION MAKING - ED course ED course: Mckee cleansed and skin removed per nursing staff. Bacitracin and a bulky dressing was applied. Patient is instructed on wound care at home and provided a prepack of hydrocodone at discharge. Departure - Departure Disposition: 01 Home, Self Care Clinical Impression: Burn of foot Qualifiers: Encounter type: initial encounter Laterality: right Burn degree: partial thickness (2nd degree) Qualified Code(s): T25.221A - Burn of second degree of right foot, initial encounter Burn of lower extremity Qualifiers: Encounter type: initial encounter Laterality: right Burn degree: partial thickness (2nd degree) Qualified Code(s): T24.201A - Burn of second degree of unspecified site of right lower limb, except ankle and foot, initial encounter Condition: Good Instructions: ED Burn D 2nd Follow-Up: Jennifer Briscoe ARNP [Primary Care Provider] - Prescriptions: Hydrocodone/Acetaminophen [Hydrocodon-Acetaminophen 5-325] 1 - 2 each PO Q6H PRN #6 tablet PRN Reason: pain Comments: Wash the wound daily with antibacterial soap such as Hibiclens and water. Apply thin layer of antibiotic ointment and keep it covered while it is healing. As the blisters pop, you can feel the skin off. Watch closely for infection to include spreading redness or purulent drainage. You are already taking an anti- inflammatory daily. You have a few hydrocodone tablets that you can use for acute pain but do not drive or operate machinery if you are taking those medications. Follow-up with your primary care provider for recheck as needed and for further pain management as needed. Discharge Date/Time: 11/21/18 01:15
[2018-11-20] MEDS ORDERED: KETOROLAC 60 MG/2 ML VIAL IM STA (23:36)
[2018-11-20] MEDS ORDERED: TETANUS/DIPHTHERIA/PERTUSSIS 0.5 ML SYRINGE IM ONE (23:42)
[2018-11-21] MEDS ORDERED: HYDROcod/ACET 5/325 Prepack 4 PO STA (00:33)
[2018-11-21] MEDS ORDERED: BACITRACIN ZINC OINT 14 GM TOP STA (00:33)
[2018-11-21 01:56] VITALS: BP 136/80
== END 2018-11-21 01:15 | disposition home or self-care (01) ==
LOC: ED 23:21
DX: T24.231A Burn of second degree of right lower leg, initial encounter (principal); T25.221A Burn of second degree of right foot, initial encounter; T31.0 Burns involving less than 10% of body surface; X12.XXXA Contact with other hot fluids, initial encounter; Y93.89 Activity, other specified; Z23 Encounter for immunization
CPT/HCPCS: 90471; 90715; 96372; 99281; 99283; A9270

== ENCOUNTER 2018-11-27 23:27 | Emergency (ER) | payer OTHER ==
--- NOTE | 2018-11-27 23:37 | ED Physician Documentation ---
PD HPI LOWER EXT INJURY - Stated complaint Stated Complaint: RT FOOT BURN - Chief complaint Chief Complaint: Burn - History obtained from History obtained from: Patient - History of Present Illness PD HPI LOW EXT INJURY LOCATION: Right, Foot Type of injury: Burn Timing - details: Abrupt onset, Still present (had burn a week ago on foot, with blistering. Some of the skin came off at the time and is less sensitive. Had intact blister on dorsum foot that just broke open and is more painful this evening. No purulence. 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 EXPERT: Breast reduction - Present Medications Home Medications: Ambulatory Orders Medication Instructions Recorded Confirmed Meloxicam [Mobic] 7.5 mg PO BIDWM PRN #15 tablet 03/01/17 Ciprofloxacin HCl [Cipro] 500 mg PO BID #20 tablet 08/21/17 Hydrocodone/Acetaminophen 1 - 2 each PO Q6H PRN #10 tablet 08/21/17 [Hydrocodon-Acetaminophen 5-325] Promethazine [Phenergan] 25 mg PO Q6H PRN #10 tab 08/21/17 Famotidine [Pepcid] 20 mg PO BID #60 tablet 01/07/18 Albuterol Sulf [Ventolin Hfa 1 - 2 puffs INH Q4HR PRN #1 inhaler 10/08/18 Inhaler] Benzonatate [Tessalon Perle] 100 - 200 mg PO TID PRN #30 capsule 10/08/18 Doxycycline Hyclate 100 mg PO BID #20 capsule 10/08/18 predniSONE [Prednisone] 20 mg PO DAILY #10 tablet 10/08/18 Hydrocodone/Acetaminophen 1 - 2 each PO Q6H PRN #6 tablet 11/21/18 [Hydrocodon-Acetaminophen 5-325] Hydrocodone/Acetaminophen [[place] 1 each PO Q6H PRN #15 tablet 11/28/18 5-325 Tablet] - Allergies Allergies/Adverse Reactions: Allergies Allergy/AdvReac Type Severity Reaction Status Date / Time aspirin Allergy Unknown Verified 11/27/18 23:47 - Social History Does the pt smoke?: No Smoking Status: Never smoker Does the pt drink ETOH?: No Does the pt have substance abuse?: No - Immunizations Immunizations are current?: Yes - POLST Patient has POLST: No PD ED PE NORMAL - Vitals Vital signs reviewed: Yes - General General: Alert and oriented X 3, Well developed/nourished, Other (appears in pain due to foot burn. ) - Derm Derm: Normal color, Warm and dry - Extremities Extremities: Other (the anterior lower leg with healing burn unroofed blister. No exudate nor surrounding redness. The dorsum foot with also blistered burn, wtih loos skin on it. There is not any signs of infection. The underlying skin is red and tender. ) Results - Vitals Vitals: Vital Signs - 24 hr 11/27/18 11/28/18 23:31 00:28 Temperature 36.3 C L 36.3 C L Heart Rate 79 72 Respiratory 18 16 Rate Blood Pressure 139/95 H 135/78 H O2 Saturation 99 99 Oxygen O2 Source Room air PD MEDICAL DECISION MAKING - ED course Complexity details: considered differential (It does not look infected. I think it is more tender just because it had been on exposed and now with the blister ruptured the underlying area is exposed and still raw. Can give lidocaine and pain medicine.), d/w patient Departure - Departure Disposition: 01 Home, Self Care Clinical Impression: Encounter for recheck of burn, Foot pain, right Condition: Stable Record reviewed to determine appropriate education?: Yes Instructions: ED Burn D 2nd Prescriptions: Hydrocodone/Acetaminophen [[place] 5-325 Tablet] 1 each PO Q6H PRN #15 tablet PRN Reason: Pain Comments: Continue with the wound treatments as you have been doing with cleaning once or twice a day with soap and water and applying the bacitracin ointment and covering with dressing. Use some anti-inflammatories such as naproxen twice daily with food. To that add Tylenol or the hydrocodone as needed for pain. It does not look infected. It does look like its healing appropriately for the burn. Follow-up with your primary care early next week, call for an appointment. Discharge Date/Time: 11/28/18 00:30
[2018-11-27] MEDS ORDERED: HYDROcod/ACETAM 5/325 MG TABLET PO STA (23:49)
[2018-11-27] MEDS ORDERED: LIDOCAINE JELLY 2% 5 ML TUBE TOP STA (23:49)
[2018-11-27] MEDS ORDERED: BACITRACIN ZINC OINT 14 GM TOP STA (23:49)
[2018-11-27] MEDS ORDERED: HYDROcod/ACET 5/325 Prepack 4 PO STA (23:55)
[2018-11-28 00:29] VITALS: BP 135/78
== END 2018-11-28 00:30 | disposition home or self-care (01) ==
LOC: ED 23:27
DX: T25.221A Burn of second degree of right foot, initial encounter (principal); T24.231A Burn of second degree of right lower leg, initial encounter; X12.XXXA Contact with other hot fluids, initial encounter
CPT/HCPCS: 99282; 99283; A9270; J3490

== ENCOUNTER 2018-12-25 17:42 | Emergency (ER) | payer OTHER ==
--- NOTE | 2018-12-25 18:24 | ED Physician Documentation ---
PD HPI URI - Stated complaint Stated Complaint: SORE THROAT - Chief complaint Chief Complaint: Heent - History obtained from History obtained from: Patient - History of Present Illness Timing - onset: How many days ago (4-5) Timing duration: Days (3-4) Timing details: Abrupt onset, Still present Associated symptoms: Fever, Chills, Nasal congestion, Sore throat, Dry cough, Chest pain, NVD. No: Dyspnea Contributing factors: Sick contact (her daughter similarly sick for 5 days) Improves by: No: Medication Similar symptoms before: Has not had sx before Review of Systems Constitutional: reports: Fever, Chills, Myalgias Eyes: denies: Discharge, Irritation Nose: reports: Rhinorrhea / runny nose, Congestion Throat: reports: Sore throat Respiratory: reports: Cough GI: reports: Nausea, Diarrhea (mild) : denies: Dysuria, Frequency Neurologic: reports: Headache. 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 MANAGER INTERIOR DESIGN: Breast reduction - Present Medications Home Medications: Ambulatory Orders Medication Instructions Recorded Confirmed Meloxicam [Mobic] 7.5 mg PO BIDWM PRN #15 tablet 03/01/17 Ciprofloxacin HCl [Cipro] 500 mg PO BID #20 tablet 08/21/17 Hydrocodone/Acetaminophen 1 - 2 each PO Q6H PRN #10 tablet 08/21/17 [Hydrocodon-Acetaminophen 5-325] Promethazine [Phenergan] 25 mg PO Q6H PRN #10 tab 08/21/17 Famotidine [Pepcid] 20 mg PO BID #60 tablet 01/07/18 Albuterol Sulf [Ventolin Hfa 1 - 2 puffs INH Q4HR PRN #1 inhaler 10/08/18 Inhaler] Benzonatate [Tessalon Perle] 100 - 200 mg PO TID PRN #30 capsule 10/08/18 Doxycycline Hyclate 100 mg PO BID #20 capsule 10/08/18 predniSONE [Prednisone] 20 mg PO DAILY #10 tablet 10/08/18 Hydrocodone/Acetaminophen 1 - 2 each PO Q6H PRN #6 tablet 11/21/18 [Hydrocodon-Acetaminophen 5-325] Hydrocodone/Acetaminophen [[place] 1 each PO Q6H PRN #15 tablet 11/28/18 5-325 Tablet] Benzonatate [Tessalon Perle] 100 mg PO TID PRN #25 capsule 12/25/18 Hydrocodone/Acetaminophen [[place] 1 each PO Q6H PRN #15 tablet 12/25/18 5-325 Tablet] Ondansetron Odt [Zofran] 4 mg TL Q6H PRN #10 tablet 12/25/18 dexAMETHasone [Decadron] 4 mg PO DAILY #5 tablet 12/25/18 - Allergies Allergies/Adverse Reactions: Allergies Allergy/AdvReac Type Severity Reaction Status Date / Time aspirin Allergy Unknown Verified 12/25/18 17:54 - Social History Does the pt smoke?: No Smoking Status: Never smoker Does the pt drink ETOH?: No Does the pt have substance abuse?: No - Immunizations Immunizations are current?: Yes - POLST Patient has POLST: No PD ED PE NORMAL - Vitals Vital signs reviewed: Yes - General General: Alert and oriented X 3, No acute distress, Well developed/nourished - HEENT HEENT: PERRL, Ears normal, Pharynx benign - Neck Neck: Supple, no meningeal sign, No adenopathy - Cardiac Cardiac: RRR, No murmur - Respiratory Respiratory: Clear bilaterally - Abdomen Abdomen: Soft, Non tender - Derm Derm: Normal color, Warm and dry, No rash - Neuro Neuro: Alert and oriented X 3, No motor deficit, Normal speech Results - Vitals Vitals: Oxygen O2 Source Room air - Labs Labs: Microbiology 12/25/18 18:03 Group A Strep Throat Culture - Final Throat MIXED OROPHARYNGEAL HERMES PRESENT. NO BETA STREP PRESENT IN CULTURE. Laboratory Tests 12/25/18 18:03 Group A Strep Rapid Negative PD MEDICAL DECISION MAKING - ED course Complexity details: considered differential (seems viral illness.), d/w patient Departure - Departure Disposition: 01 Home, Self Care Clinical Impression: Upper respiratory infection Qualifiers: URI type: unspecified URI Qualified Code(s): J06.9 - Acute upper respiratory infection, unspecified Condition: Stable Record reviewed to determine appropriate education?: Yes Instructions: ED Upper Resp Infec No Abx Tx Prescriptions: Benzonatate [Tessalon Perle] 100 mg PO TID PRN #25 capsule PRN Reason: Cough dexAMETHasone [Decadron] 4 mg PO DAILY #5 tablet Hydrocodone/Acetaminophen [[place] 5-325 Tablet] 1 each PO Q6H PRN #15 tablet PRN Reason: Pain Ondansetron Odt [Zofran] 4 mg TL Q6H PRN #10 tablet PRN Reason: Nausea / Vomiting Comments: Stay well-hydrated. Use Decadron steroid daily for the next 5 days to reduce inflammation. Continue your albuterol inhaler 2 puffs 4 times a day if needed for wheeziness. Sometimes can help with cough as well. Tessalon if needed for throat and bronchial irritation. Add hydrocodone if needed for pains. Recheck if not improving over the next several days. Ondansetron if needed for nausea. This sounds like a viral illness. Your strep test is negative. I do not see an indication for antibiotics to be helpful. Discharge Date/Time: 12/25/18 19:37
[2018-12-25] MEDS ORDERED: BENZONATATE 100 MG CAPSULE PO STA (18:55)
[2018-12-25] MEDS ORDERED: ONDANSETRON ODT 4 MG TABLET TL STA (18:55)
[2018-12-25] MEDS ORDERED: CHERRY SYRUP 10 ML UDC PO ONE (18:55)
[2018-12-25] MEDS ORDERED: HYDROcod/ACETAM 5/325 MG TABLET PO STA (18:55)
[2018-12-25] MEDS ORDERED: DEXAMETHASONE 10 MG/ML VIAL PO STA (18:55)
[2018-12-25 19:36] VITALS: BP 139/83
== END 2018-12-25 19:37 | disposition home or self-care (01) ==
LOC: ED 17:42
DX: J06.9 Acute upper respiratory infection, unspecified (principal)
CPT/HCPCS: 87070; 87430; 99284; A9270; Q0162

== ENCOUNTER 2019-11-20 20:33 | Emergency (ER) | payer OTHER ==
[2019-11-20 20:42] VITALS: BP 130/77
[2019-11-20] MEDS ORDERED: HYDROcod/ACETAM 5/325 MG TABLET PO STA (20:51)
--- NOTE | 2019-11-20 20:54 | ED Physician Documentation ---
History of Present Illness - Stated complaint Stated Complaint: RT EAR PX - Chief complaint Chief Complaint: Heent - Additonal information Additional information: 39-year-old female presents to the emergency department for evaluation of 2 days right ear pain. She reports that about 5 days ago she was taking a bath and submerged her head to rinse it. She does not think she got the water out of the ear. She reports a history of recurrent ear infections. She does have a history of Sojourn's as well as fibromyalgia. She takes Plaquenil daily She denies fevers, cough, congestion chest pain shortness of breath or any recent travel Review of Systems Constitutional: reports: Reviewed and negative Ears: reports: Ear pain. denies: Loss of hearing, Drainage/discharge Nose: reports: Rhinorrhea / runny nose, Congestion Throat: reports: Reviewed and negative Cardiac: reports: Reviewed and negative Respiratory: reports: Reviewed and negative GI: reports: Reviewed and negative : reports: Reviewed and negative Skin: reports: Reviewed and negative PD PAST MEDICAL HISTORY - Past Medical History Cardiovascular: None Respiratory: Asthma Neuro: None Endocrine/Autoimmune: None GI: None DISC RECORDIST: None : None HEENT: None Psych: None Musculoskeletal: Rheumatoid arthritis Derm: None - Past Surgical History Past Surgical History: Yes General: Colonoscopy /DISC RECORDIST: Breast reduction - Present Medications Home Medications: Ambulatory Orders Medication Instructions Recorded Confirmed Meloxicam [Mobic] 7.5 mg PO BIDWM PRN #15 tablet 03/01/17 Ciprofloxacin HCl [Cipro] 500 mg PO BID #20 tablet 08/21/17 Hydrocodone/Acetaminophen 1 - 2 each PO Q6H PRN #10 tablet 08/21/17 [Hydrocodon-Acetaminophen 5-325] Promethazine [Phenergan] 25 mg PO Q6H PRN #10 tab 08/21/17 Famotidine [Pepcid] 20 mg PO BID #60 tablet 01/07/18 Albuterol Sulf [Ventolin Hfa 1 - 2 puffs INH Q4HR PRN #1 inhaler 10/08/18 Inhaler] Benzonatate [Tessalon Perle] 100 - 200 mg PO TID PRN #30 capsule 10/08/18 Doxycycline Hyclate 100 mg PO BID #20 capsule 10/08/18 predniSONE [Prednisone] 20 mg PO DAILY #10 tablet 10/08/18 Hydrocodone/Acetaminophen 1 - 2 each PO Q6H PRN #6 tablet 11/21/18 [Hydrocodon-Acetaminophen 5-325] Hydrocodone/Acetaminophen [[place] 1 each PO Q6H PRN #15 tablet 11/28/18 5-325 Tablet] Benzonatate [Tessalon Perle] 100 mg PO TID PRN #25 capsule 12/25/18 Hydrocodone/Acetaminophen [[place] 1 each PO Q6H PRN #15 tablet 12/25/18 5-325 Tablet] Ondansetron Odt [Zofran] 4 mg TL Q6H PRN #10 tablet 12/25/18 dexAMETHasone [Decadron] 4 mg PO DAILY #5 tablet 12/25/18 Ciprofloxacin/Hydrocortisone 10 ml OT BID #1 bottle 11/20/19 [Cipro Hc Otic Suspension] - Allergies Allergies/Adverse Reactions: Allergies Allergy/AdvReac Type Severity Reaction Status Date / Time aspirin Allergy Unknown Verified 11/20/19 20:41 - Social History Does the pt smoke?: No Smoking Status: Never smoker Does the pt drink ETOH?: No Does the pt have substance abuse?: No - Immunizations Immunizations are current?: Yes - POLST Patient has POLST: No PD ED PE EXPANDED - General General: Alert, No acute distress - HEENT HEENT: Moist mucous membranes, Pharynx normal, Dentition normal, Other (Right external auditory canal with erythema and small amount of mucopurulent drainage. Visible tympanic membrane intact with out erythema or obvious effusion. No mastoid tenderness. Left EAC and tympanic membrane unremarkable.). No: Nasal congestion Results - Vitals Vitals: Vital Signs - 24 hr 11/20/19 20:35 Temperature 36.4 C L Heart Rate 85 Respiratory 14 Rate Blood Pressure 130/77 O2 Saturation 98 Oxygen O2 Source Room air PD MEDICAL DECISION MAKING - ED course Complexity details: d/w patient ED course: 39-year-old female presents with 2 days of acute right ear pain. Findings of otitis externa on exam. Patient will be prescribed ciprofloxacin with hydrocortisone otic suspension. No findings of malignant otitis externa. Emergent return precautions discussed Departure - Departure Disposition: 01 Home, Self Care Clinical Impression: Otitis externa Qualifiers: Otitis externa type: swimmer's ear Chronicity: acute Laterality: right Qualified Code(s): H60.331 - Swimmer's ear, right ear Condition: Stable Record reviewed to determine appropriate education?: Yes Instructions: ED Otitis Externa Prescriptions: Ciprofloxacin/Hydrocortisone [Cipro Hc Otic Suspension] 10 ml OT BID #1 bottle Comments: You have an infection in your right ear canal. Tomorrow morning please fill the prescription for the antibiotic drops. There is a mild steroid in the drops that should help most with the pain over the next 24 to 48 hours. I do recommend a warm compress over the ear as well as taking ibuprofen [id number] for pain. If your ear pain is not improving within 3 days, you develop fevers, have ear drainage or ear swelling please return to the emergency department
== END 2019-11-20 21:04 | disposition home or self-care (01) ==
LOC: ED 20:33
DX: H60.331 Swimmer's ear, right ear (principal)
CPT/HCPCS: 99282; 99283; A9270

== ENCOUNTER 2019-12-30 10:06 | Outpatient (CLI) | payer OTHER ==
--- NOTE | 2019-12-30 13:36 | MRI Report ---
PROCEDURE: Wrist RT W/O INDICATIONS: RT WRIST PAIN TECHNIQUE: Noncontrast coronal proton density fast spin echo and T2 fast spin echo with fat saturation; coronal 3-D gradient echo, axial T1 spin echo and T2 fast spin echo with fat saturation, sagittal T1 spin ech o through the wrist. COMPARISON: None. FINDINGS: Image quality: Excellent. Bones and cartilage: No acute trabecular bone injury. Degenerative cystic changes are seen at the wa ist of the scaphoid. There are no signs of scaphoid fracture or osteonecrosis. The carpal bones are n ormally aligned. There is neutral ulnar variance. Carpal ligaments: The scapholunate and lunotriquetral ligaments appear intact. In the absence of in tra-articular contrast, the extrinsic carpal ligaments are not well identified. Triangular fibrocartilage complex: The triangular fibrocartilage appears intact. Tendons and soft tissues: The carpal tunnel structures appear normal, including the median nerve. T he ulnar nerve appears normal within Guyon?s canal. A skin marker is seen at the proximal dorsal radial aspect of the wrist overlying the first extensor compartment tendons as they pass over the second extensor compartment tendons. However, no abnormal s ignal intensity or fluid is seen to suggest a diagnosis of intersection syndrome. All six extensor te ndon compartments demonstrate normal morphology, without pathologic tendon sheath fluid. A lobulated fluid collection is seen at the volar radial aspect of the wrist measuring 16 x 7 x 9 mm, compatible with a small ganglion cyst. A tiny 3 mm ganglion cyst seen at the dorsum of the wrist adjacent to the lunate bone. IMPRESSION: 1. The skin marker is located at the crossover point between the abductor pollicis longus and extens or pollicis brevis brevis tendons and the extensor carpi radialis brevis and longus tendons. However, no associated peritendinous edema is seen at the time of this exam to suggest tendon intersection sy ndrome. Recommend correlation with symptoms and clinical exam findings. 2. Lobulated ganglion cyst at the volar radial aspect of the wrist measuring 16 x 7 x 9 mm. Reviewed by: Nickolas Jones MD on 12/30/2019 1:34 PM PST Approved by: Nickolas Jones MD on 12/30/2019 1:34 PM PST Station ID: [id number]
== END 2019-12-30 10:07 | disposition home or self-care (01) ==
LOC: DI 10:06
PROVIDERS: ATTEND Orthopaedic Surgery
DX: M67.431 Ganglion, right wrist (principal)

== ENCOUNTER 2020-01-16 11:27 | Day surgery (SDC) | payer OTHER ==
[~2020-01-16 11:27] MED LIST: CEFAZOLIN SODIUM IN 0.9 % NACL 2 GM/100 ML BAG IV ONE
[2020-01-16] MEDS ORDERED: MORPHINE 2 MG/ML CARPUJECT IVP PRN (11:46)
[2020-01-16] MEDS ORDERED: ONDANSETRON 4 MG/2 ML VIAL IVP PRN (11:46)
[2020-01-16] MEDS ORDERED: METOCLOPRAMIDE 10 MG/2 ML VIAL IVP PRN (11:46)
[2020-01-16] MEDS ORDERED: NALOXONE 0.4 MG/ML VIAL IVP PRN (11:46)
[2020-01-16] MEDS ORDERED: ePHEDrine 50 MG/ML VIAL IVP PRN (11:46)
[2020-01-16] MEDS ORDERED: HYDROmorphone 0.5 MG/0.5 ML SYRINGE IVP PRN (11:46)
[2020-01-16] MEDS ORDERED: ATROPINE ABBOJECT 1 MG/10 ML SYRINGE IVP PRN (11:46)
[2020-01-16 11:52] LABS: HCG UR QUAL NEGATIVE
[2020-01-16] MEDS ORDERED: LACTATED RINGERS 1,000 ML IV SCH (12:00)
[2020-01-16] MEDS ORDERED: LIDOCAINE 1%-EPI 1:100000 20 ML MDV ONE (12:01)
[2020-01-16] MEDS ORDERED: BUPIVACAINE 0.25% PF 30 ML VIAL ONE (12:01)
[2020-01-16] MEDS ORDERED: LACTATED RINGERS 1,000 ML IV ONE ×2 (12:02→14:34)
--- NOTE | 2020-01-16 12:08 | ANESTHESIA ---
Pre-Anesthesia VS, & Labs - Diagnosis carpel tunnel syndrome - Procedure Right Carpel tunnel release Vital Signs: Temp Pulse Resp BP Pulse Ox 36.9 C 78 16 127/86 H 100 01/16/20 11:39 01/16/20 11:39 01/16/20 11:39 01/16/20 11:39 01/16/20 11:39 Height: 5 ft 1 in Weight (kg): 89 kg Body Mass Index: 37.0 BMI Classification: Obese - NPO >8 hours - Is Patient ?: No - Lab Results Lab results reviewed: Yes Home Medications and Allergies Home Medications: Ambulatory Orders Biotin 5,000 mcg PO DAILY 01/15/20 Hydroxychloroquine [Plaquenil] 200 mg PO BID 01/15/20 Active Medications Atropine Sulfate (Atropine Abboject 1 Mg/10 Ml Syringe) 0.5 mg IVP Q5M PRN PRN Reason: Bradycardia Stop: 01/17/20 11:47 Ephedrine Sulfate (Ephedrine 50 Mg/Ml Vial) 10 mg IVP Q5M PRN PRN Reason: HYPOTENSION Stop: 01/17/20 11:47 Fentanyl (Fentanyl 100 Mcg/2 Ml Vial) 25 - 50 mcg IVP Q5M PRN PRN Reason: BREAKTHROUGH PAIN (2nd Choice) Stop: 01/17/20 11:47 Hydromorphone HCl (Hydromorphone 0.5 Mg/0.5 Ml Syringe) 0.2 - 0.6 mg IVP Q5M PRN PRN Reason: PAIN (First Choice) Stop: 01/17/20 11:47 Lactated Ringer's (Lr) 1,000 mls @ 100 mls/hr IV .Q10H YOMAIRA Stop: 01/16/20 21:59 Metoclopramide HCl (Metoclopramide 10 Mg/2 Ml Vial) 10 mg IVP Q6HR PRN PRN Reason: N/V not relieved by Zofran Morphine Sulfate (Morphine 2 Mg/Ml Carpuject) 2 - 4 mg IVP Q5M PRN PRN Reason: PAIN (3rd Choice) Stop: 01/17/20 11:47 Naloxone HCl (Naloxone 0.4 Mg/Ml Vial) 0.1 mg IVP Q2M PRN PRN Reason: RESP RATE <8 Stop: 01/17/20 11:47 Ondansetron HCl (Ondansetron 4 Mg/2 Ml Vial) 4 mg IVP ONCE PRN PRN Reason: N/V (First Choice) Stop: 01/17/20 11:47 Biotin 5,000 mcg PO DAILY 01/15/20 Hydroxychloroquine [Plaquenil] 200 mg PO BID 01/15/20 Allergies/Adverse Reactions: Allergies Allergy/AdvReac Type Severity Reaction Status Date / Time aspirin Allergy Intermediate Edema Verified 01/15/20 13:40 Anes History & Medical History - Anesthetic History Anesthesia Complications: reports: No previous complications - Medical History Cardiovascular: reports: None Pulmonary: reports: Asthma Gastrointestinal: reports: None Urinary: reports: None Neuro: reports: None Musculoskeletal: reports: None Endocrine/Autoimmune: reports: None, Other (Possible Lupus/Shogrens Syndrome) Blood Disorders: reports: None Skin: reports: Eczema Smoking Status: Never smoker Psychosocial: reports: No issues indicated History of Cancer?: No - Surgical History General: Colonoscopy, Other Gynecologic: Breast reduction Exam General: Alert Dental: WNL Mouth Openin Fingerbreadth Neck Mobility: Normal Thyromental Distance: 4-6 cm Respiratory: Lungs clear Cardiovascular: Regular rate Plan Anesthesia Type: General Consent for Procedure(s) Verified and Reviewed: Yes Code Status: Attempt Resuscitation ASA classification: 2-Mild systemic disease Is this case an emergency?: No
[2020-01-16] MEDS ORDERED: fentaNYL 100 MCG/2 ML VIAL IVP ONE (12:17)
[2020-01-16] MEDS ORDERED: KETOROLAC 30 MG/ML VIAL IVP ONE (12:17)
[2020-01-16] MEDS ORDERED: MIDAZOLAM 2 MG/2 ML VIAL IVP ONE (12:17)
[2020-01-16] MEDS ORDERED: LIDOCAINE-MPF 2% 5 ML VIAL IM ONE (12:17)
[2020-01-16] MEDS ORDERED: DEXAMETHASONE 4 MG/ML VIAL IVP ONE (12:17)
[2020-01-16] MEDS ORDERED: ONDANSETRON 4 MG/2 ML VIAL IVP ONE (12:17)
[2020-01-16] MEDS ORDERED: PROPOFOL 200 MG/20 ML VIAL IVP ONE (12:17)
[2020-01-16] MEDS ORDERED: LIDOCAINE 1%-EPI 1:100000 30 ML MDV SUBQ ONE (12:50)
[2020-01-16] MEDS ORDERED: BUPIVACAINE 0.25% PF 30 ML VIAL SUBQ ONE ×2 (12:50)
--- NOTE | 2020-01-16 13:19 | OPERATIVE REPORT ---
Operative Report - General Procedure Date: 01/16/20 - Procedure Note Anesthesia Technique: General LMA Estimated Blood Loss (mL): 10 - Other Other Information/Narrative: Date of Procedure: 16 January 2020 Planned Procedure: Right open carpal tunnel release Pre-op diagnosis: Right carpal tunnel syndrome Procedure performed: Right open carpal tunnel Post-op diagnosis: Right carpal tunnel syndrome Primary Surgeon: TIFF RODRIGUEZ Secondary Surgeon: Eric Anesthesia: General LMA EBL: 10 ml Tourniquet: 12 minutes, right upper arm at 250mmHg. Specimen(s) Information: None Complication(s): None Condition: Stable to recovery Indications for Surgery: The patient is a 40-year-old right hand dominant female with a 15-year history of worsening right hand numbness in the median nerve distribution. Clinical exam and EMG consistent with right carpal tunnel syndrome. They had failed non- operative management and desired surgical intervention. Risks of surgery were discussed to include bleeding, infection, postoperative wrist stiffness, damage to nerves (including the median nerve and recurrent motor branch to the thenar musculature), vessels, tendons, ligaments, anesthesia complications to include medication side effects and allergic reactions, blood clot, stroke, heart attack and even . After a discussion, they wished to proceed. Findings: Thickened transverse carpal ligament Descriptions of Procedure: The patient was met in the Preoperative Holding Area, at which time preoperative paperwork was confirmed. The right volar hand was signed. The patient was then brought to Main Operating Room, placed supine on the Operating Room table, at which time pre procedure timeout was conducted to confirm correct patient, correct extremity and correct procedure and also to confirm presence and sterility of all required equipment and to confirm that antibiotics were being administered in the form of 2g of intravenous Ancef. After this was confirmed, general anesthesia was induced. The operative extremity was then prepped and draped over a hand table in the normal sterile fashion after a well-padded tourniquet was placed on the proximal arm. A final timeout was conducted to confirm the correct patient, correct extremity and correct procedure and to confirm that antibiotics had been administered within 30 minutes of incision time. The operative extremity was then exsanguinated with an Esmarch bandage and tourniquet inflated to 250mmHg. Jiang's cardinal line, and the proximal projection of the radial border of the ring finger/ulnar corner of the flexed ring finger and the hook of hamate were marked on the hand. A 3cm longitudinal incision was made with a #15 blade through skin and subcutaneous tissue. Dissection was further carried out with tenotomy scissors. Small crossing vessels were coagulated with bipolar electrocautery, the palmar fascia was exposed, and split longitudinally in line with its fibers, the fat was retracted ulnarly, and the transverse carpal ligament was exposed. A 15 blade was used to make a small incision in the transverse carpal ligament, and then a small mosquito clamp was introduced directly deep to the ligament above the contents of the carpal tunnel to gently free off any adhesions between the deep surface of the transverse carpal ligament and the median nerve. Dissection was carried distally under direct visualization, releasing the transverse carpal ligament until the palmar fat was was visualized. A freer was passed to ensure that there were no remaining tight bands constricting the nerve. Attention was then turned proximally, and a Berger elevator was passed deep to the transverse carpal ligament and antebrachial fascia, and these were incised in line with the nerve approximately 2 cm proximal to the distal wrist c rease. Again freer examination of the proximal extent of the release was performed to ensure no tight bands or constrictive points remained over the nerve. Satisfied that the carpal tunnel had been completely released, the wound was irrigated, and the tourniquet was let down. Pressure was held on the incision for approximately 5 minutes, and bleeding points were then cauterized with bipolar electrocautery. After ensuring good hemostasis, the wound was again irrigated and then closed using 4-0 Nylon in interrupted horizontal mattress fashion. 10 mL of quarter percent Marcaine plain was injected into the ky-incisional soft tissues. The wound was then dressed with Xeroform, 4 x 4 gauze and a compressive Vu wrap. The patient was then awakened from general anesthesia without complication, brought to the Post Anesthesia Care for further recovery. Postoperative Plan: 1. The patient will be discharged from the Same Day Surgery Unit when discharge criteria are met. 2. The patient will remain in a soft dressing until follow-up. They can begin gentle wrist range of motion on postoperative day #1 or #2 as pain allows. 3. The patient will follow up in 10-14 days for a wound and suture removal. 4. Expect return to fullactivities around 6-8 weeks, they may have wrist stiffness postoperatively.
[2020-01-16] MEDS ORDERED: oxyCODONE 5 MG TABLET PO PRN (13:20)
[2020-01-16] MEDS: fentaNYL 100 MCG/2 ML VIAL IVP PRN ×2 (13:32→13:56)
[2020-01-16] MEDS ORDERED: fentaNYL 100 MCG/2 ML VIAL ONE (13:37)
[2020-01-16] MEDS ORDERED: HYDROmorphone 1 MG/ML CARPUJECT ONE (13:37)
[2020-01-16 14:54] VITALS: BP 138/85
[2020-01-16] MEDS ORDERED: oxyCODONE 5 MG TABLET ONE (15:25)
--- NOTE | 2020-01-16 16:13 | ANESTHESIA POST OP EVALUATION ---
Anesthesia Post Eval - Post Anesthesia Eval Vitals: Last Vital Signs Temp 36.3 C L 01/16/20 14:30 Pulse 76 01/16/20 14:54 Resp 19 01/16/20 14:54 BP 138/85 H 01/16/20 14:54 Pulse Ox 100 01/16/20 14:54 CV Function Including HR & BP: positive: Stable Pain Control: positive: Satisfactory Nausea & Vomiting: positive: Negative Mental Status: positive: Baseline Respiratory Status: Airway Patent Hydration Status: Satisfactory Anesthesia Complications: positive: None
== END 2020-01-16 11:28 | disposition home or self-care (01) ==
LOC: SDS 11:27
PROVIDERS: ATTEND Orthopaedic Surgery
DX: G56.01 Carpal tunnel syndrome, right upper limb (principal); E66.9 Obesity, unspecified; Z68.37 Body mass index [BMI] 37.0-37.9, adult
CPT/HCPCS: 81025

== ENCOUNTER 2020-04-18 00:01 | Emergency (ER) | payer OTHER ==
[2020-04-18] MEDS ORDERED: DEXAMETHASONE 10 MG/ML VIAL PO STA (00:47)
[2020-04-18] MEDS ORDERED: CHERRY SYRUP 10 ML UDC PO ONE (00:47)
[2020-04-18 01:02] LABS: BASOPHILS # (AUTO) 0.1 10^3/uL (0.0-0.1); BASOPHILS % (AUTO) 0.7 %; EOSINOPHILS # (AUTO) 0.3 10^3/uL (0.0-0.7); EOSINOPHILS % (AUTO) 3.7 %; HCT - HEMATOCRIT 40.4 % (37.0-47.0); HGB - HEMOGLOBIN 13.5 g/dL (12.0-16.0); LYMPHOCYTES # (AUTO) 2.4 10^3/uL (1.5-3.5); LYMPHOCYTES % (AUTO) 35.9 %; MEAN CORPUSCULAR HEMOGLOBIN 28.5 pg (27.0-31.0); MEAN CORPUSCULAR HGB CONC 33.4 g/dL (32.0-36.0); MEAN CORPUSCULAR VOLUME 85.4 fL (81.0-99.0); MEAN PLATELET VOLUME 9.8 fL (7.9-10.8); MONOCYTES # (AUTO) 0.6 10^3/uL (0.0-1.0); MONOCYTES % (AUTO) 8.9 %; NEUTROPHILS # (AUTO) 3.4 10^3/uL (1.5-6.6); NEUTROPHILS % (AUTO) 50.7 %; PLT - PLATELET COUNT 319 10^3/uL (130-450); RED BLOOD COUNT 4.73 10^6/uL (4.20-5.40); WHITE BLOOD COUNT 6.7 x10^3/uL (4.8-10.8)
[2020-04-18 01:20] LABS: ALBUMIN/GLOBULIN RATIO 1.1 (1.0-2.2); ALKALINE PHOSPHATASE 52 IU/L (42-121); ALT ALANINE AMINOTRANSFERASE 17 IU/L (10-60); AST ASPARTATE AMINOTRANSFERASE 18 IU/L (10-42); BILIRUBIN,TOTAL 0.4 mg/dL (0.2-1.0); BUN - BLOOD UREA NITROGEN 12 mg/dL (6-20); CALCIUM 9.1 mg/dL (8.5-10.3); CARBON DIOXIDE - CO2 23 mmol/L (21-32); CHLORIDE 105 mmol/L (101-111); CREATININE 0.6 mg/dL (0.4-1.0); GFR - MDRD 112 (>89); GLUCOSE 98 mg/dL (70-100); LIPASE 21 U/L (22-51); POTASSIUM 3.6 mmol/L (3.5-5.0); SODIUM 139 mmol/L (135-145); TOTAL PROTEIN 7.7 g/dL (6.7-8.2)
[2020-04-18 01:25] LABS: CRP - C-REACTIVE PROTEIN < 1.0 mg/dL (0-1.0)
--- NOTE | 2020-04-18 01:43 | ED Physician Documentation ---
PD HPI SKIN - Stated complaint Stated Complaint: FACE PX - Chief complaint Chief Complaint: Allergic Rx - History obtained from History obtained from: Patient - History of Present Illness Timing - onset: Enter time (1999), Today Timing - duration: Hours Timing - details: Abrupt onset, Still present Location: Face, RUE, LUE Quality / character: Itchy, Burning, Discolored Associated symptoms: Joint pain, Facial swelling. 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 She states these episodes have been happening for months. She has noted an increase in the frequency in the past week and that is happening nearly daily now. She does not have any known exposure to new medications or foods. She is on Savella and has been on this before she began having these symptoms. She has been on the Plaquenil since 2018. She indicates that she has had these symptoms and they have been resolved when she has gone to see her subway repair supervisor about this. Review of Systems Constitutional: denies: Fever Eyes: denies: Decreased vision Ears: denies: Ear pain Nose: denies: Rhinorrhea / runny nose, Congestion Throat: denies: Sore throat Cardiac: denies: Chest pain / pressure, Palpitations Respiratory: denies: Dyspnea, Cough GI: denies: Abdominal Pain, Nausea, Vomiting : denies: Dysuria, Frequency Skin: reports: Rash (to the face has resolved.) Musculoskeletal: reports: Extremity pain (fingers are burning painful), Extremity swelling (fingers are swollen). denies: Neck pain, Back pain Neurologic: denies: Generalized weakness, Focal weakness, Numbness PD PAST MEDICAL HISTORY - Past Medical History Past Medical History: Yes Cardiovascular: None Respiratory: Asthma Neuro: None Endocrine/Autoimmune: None, Other GI: None FOCUSING MACHINE OPERATOR: None : None HEENT: None Psych: None Musculoskeletal: Rheumatoid arthritis Derm: None - Past Surgical History Past Surgical History: Yes General: Colonoscopy Ortho: Carpal Tunnel surgery /FOCUSING MACHINE OPERATOR: Breast reduction - Present Medications Home Medications: Ambulatory Orders Medication Instructions Recorded Confirmed Albuterol Sulf [Ventolin Hfa 1 - 2 puffs INH Q4HR PRN #1 inhaler 10/08/18 01/15/20 Inhaler] Biotin 5,000 mcg PO DAILY 01/15/20 01/15/20 Hydroxychloroquine [Plaquenil] 200 mg PO BID 01/15/20 01/15/20 Milnacipran HCl [Savella] 200 mg PO BID 04/18/20 04/18/20 - Allergies Allergies/Adverse Reactions: Allergies Allergy/AdvReac Type Severity Reaction Status Date / Time aspirin Allergy Intermediate Edema Verified 04/18/20 00:04 acetaminophen Allergy Unknown Verified 04/18/20 00:04 phenyltoloxamine Allergy Unknown Verified 04/18/20 00:04 salicylamide Allergy Unknown Verified 04/18/20 00:04 - Social History Does the pt smoke?: No Smoking Status: Never smoker Does the pt drink ETOH?: No Does the pt have substance abuse?: No - Immunizations Immunizations are current?: Yes - POLST Patient has POLST: No PD ED PE NORMAL - Vitals Vital signs reviewed: Yes (hypertensive ) - General General: Alert and oriented X 3, No acute distress, Well developed/nourished - HEENT HEENT: Atraumatic, PERRL, EOMI, Other (There is no swelling to the face and no erythema. She brings photos of her face from 8pm and these show a non-specific erythema to the cheecks. Aeme and not red. Well demarcated. ) - Neck Neck: Supple, no meningeal sign - Respiratory Respiratory: No respiratory distress - Derm Derm: Normal color, Warm and dry - Extremities Extremities: No deformity, Other (The fingers are erthymatous proximally and mildly swollen. They are tight to flex. distal n/v intact. ) - Neuro Neuro: Alert and oriented X 3, electric blanket wirer 2-12 intact, No motor deficit, No sensory deficit, Normal speech Eye Opening: Spontaneous Motor: Obeys Commands Verbal: Oriented GCS Score: 15 - Psych Psych: Normal mood, Normal affect Results - Vitals Vitals: Vital Signs - 24 hr 04/18/20 00:05 Temperature 36.6 C Heart Rate 100 Respiratory 16 Rate Blood Pressure 150/100 H O2 Saturation 100 Oxygen O2 Source Room air - Labs Labs: Laboratory Tests 04/18/20 04/18/20 04/18/20 00:55 00:55 00:55 WBC 6.7 RBC 4.73 Hgb 13.5 Hct 40.4 MCV 85.4 MCH 28.5 MCHC 33.4 RDW 13.0 Plt Count 319 MPV 9.8 Neut # (Auto) 3.4 Lymph # (Auto) 2.4 [place] # (Auto) 0.6 Eos # (Auto) 0.3 Baso # (Auto) 0.1 Absolute Nucleated RBC 0.00 Nucleated RBC % 0.0 ESR 9 Sodium 139 Potassium 3.6 Chloride 105 Carbon Dioxide 23 Anion Gap 11.0 BUN 12 Creatinine 0.6 Estimated GFR (MDRD) 112 Glucose 98 Calcium 9.1 Total Bilirubin 0.4 AST 18 ALT 17 Alkaline Phosphatase 52 C-Reactive Protein < 1.0 Total Protein 7.7 Albumin 4.0 Globulin 3.7 Albumin/Globulin Ratio 1.1 Lipase 21 L PD MEDICAL DECISION MAKING - ED course Complexity details: reviewed old records, reviewed results, re-evaluated patient, considered differential, d/w patient ED course: 40-year-old femaleWith a history of episodic erythema to the cheeks has had resolution of her symptoms while she is here with the exception of some swelling to her fingers. Today I thought it practical to check her inflammatory markers and found that they were not elevated. She is administered a dose of dexamethasone here in the emergency department empirically. She has some improvement further while she was in the emergency department in the swelling in her fingers. The rash of her face resolved prior to her arrival. I am uncertain of what this represents but her description of repetitive episodes indicates there is likely some pathology associated. I have referred her back to her subway repair supervisor for any more specifics for treatment. Departure - Departure Disposition: 01 Home, Self Care Clinical Impression: Rash of multiple digits of both hands Condition: Stable Instructions: ED Dermatitis Non Specific Rash Follow-Up: REGLA ESPINOSA ARNP [Primary Care Provider] - Comments: Today we did not uncover any specific reason for the swelling in your fingers and the rash on your face. These look like they have self resolved, and note today during this episode your inflammatory markers, your ESR and CRP, were both normal. Follow-up with your subway repair supervisor for these episodic eruptions.
[2020-04-18 02:05] VITALS: BP 144/103
== END 2020-04-18 02:05 | disposition home or self-care (01) ==
LOC: ED 00:01
DX: R21 Rash and other nonspecific skin eruption (principal)
CPT/HCPCS: 36415; 80053; 83690; 85025; 85651; 86140; 99283; 99284; A9270

== ENCOUNTER 2020-05-02 12:01 | Emergency (ER) | payer OTHER ==
--- NOTE | 2020-05-02 12:47 | ED Physician Documentation ---
History of Present Illness - Stated complaint Stated Complaint: CHEST PALPITATIONS - Chief complaint Chief Complaint: Cardiac - History obtained from History obtained from: Patient - History of Present Illness Timing: Today Pain level max: 0 Pain level now: 0 - Additonal information Additional information: Patient is a 40-year-old female who presents to the emergency department palpitations today. She states this is happened 2-3 times today. Each lasting about 20 to 30 minutes at a time. No pain. No difficulty breathing. No nausea or vomiting. This is been an ongoing issue for several years. She has had multiple work-ups that were negative. Negative Holter monitors. She states that her MORTEZA test recently was positive and she has been referred to rheumatology. No changes to her medications. No caffeine. No alcohol. Patient states she currently feels better. Nothing makes it better or worse Review of Systems Ten Systems: 10 systems reviewed and negative Constitutional: denies: Fever, Chills Ears: denies: Drainage/discharge Nose: denies: Rhinorrhea / runny nose Throat: denies: Sore throat Cardiac: denies: Chest pain / pressure, Calf pain Respiratory: denies: Cough GI: denies: Nausea, Vomiting, Diarrhea Skin: denies: Rash Musculoskeletal: denies: Neck pain, Back pain Neurologic: denies: Headache PD PAST MEDICAL HISTORY - Past Medical History Past Medical History: Yes Cardiovascular: None Respiratory: Asthma Neuro: None Endocrine/Autoimmune: None, Other GI: None 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 - Past Surgical History Past Surgical History: Yes General: Colonoscopy Ortho: Carpal Tunnel surgery /CUTTER ALUMINUM SHEET: Breast reduction - Present Medications Home Medications: Ambulatory Orders Medication Instructions Recorded Confirmed Albuterol Sulf [Ventolin Hfa 1 - 2 puffs INH Q4HR PRN #1 inhaler 10/08/18 01/15/20 Inhaler] Biotin 5,000 mcg PO DAILY 01/15/20 01/15/20 Hydroxychloroquine [Plaquenil] 200 mg PO BID 01/15/20 01/15/20 Milnacipran HCl [Savella] 200 mg PO BID 04/18/20 04/18/20 - Allergies Allergies/Adverse Reactions: Allergies Allergy/AdvReac Type Severity Reaction Status Date / Time aspirin Allergy Intermediate Edema Verified 05/02/20 12:15 acetaminophen Allergy Unknown Verified 05/02/20 12:15 phenyltoloxamine Allergy Unknown Verified 05/02/20 12:15 salicylamide Allergy Unknown Verified 05/02/20 12:15 - Social History Does the pt smoke?: No Smoking Status: Never smoker Does the pt drink ETOH?: No Does the pt have substance abuse?: No - Immunizations Immunizations are current?: Yes - POLST Patient has POLST: No PD ED PE NORMAL - Vitals Vital signs reviewed: Yes - General General: Alert and oriented X 3, Well developed/nourished, Other (Appears very anxious) - HEENT HEENT: Moist mucous membranes - Neck Neck: Supple, no meningeal sign - Cardiac Cardiac: RRR, Strong equal pulses - Respiratory Respiratory: No respiratory distress, Clear bilaterally - Abdomen Abdomen: Soft, Non tender, Non distended - Derm Derm: Warm and dry - Extremities Extremities: No edema, No calf tenderness / cord - Neuro Neuro: Alert and oriented X 3 Results - Vitals Vitals: Vital Signs - 24 hr 05/02/20 05/02/20 05/02/20 12:07 12:43 13:33 Temperature 36.3 C L Heart Rate 106 H 92 94 Respiratory 20 14 13 Rate Blood Pressure 154/102 H 142/110 H 136/99 H O2 Saturation 99 100 100 05/02/20 14:09 Temperature Heart Rate 100 Respiratory 17 Rate Blood Pressure 136/90 H O2 Saturation 100 Oxygen O2 Source Room air - EKG (time done) 1210 Rate: Rate (enter#) (90) Rhythm: NSR [place]: Normal Intervals: Normal [place] QRS: Normal Ischemia: Normal ST segments - Labs Labs: Laboratory Tests 05/02/20 05/02/20 05/02/20 13:03 13:03 13:03 WBC 5.7 RBC 4.58 Hgb 13.0 Hct 40.1 MCV 87.6 MCH 28.4 MCHC 32.4 RDW 13.1 Plt Count 291 MPV 9.6 Neut # (Auto) 3.0 Lymph # (Auto) 2.1 [place] # (Auto) 0.5 Eos # (Auto) 0.2 Baso # (Auto) 0.0 Absolute Nucleated RBC 0.00 Nucleated RBC % 0.0 Sodium 138 Potassium 3.7 Chloride 100 L Carbon Dioxide 25 Anion Gap 13.0 BUN 8 Creatinine 0.6 Estimated GFR (MDRD) 112 Glucose 90 Calcium 8.9 Total Bilirubin 0.6 AST 21 ALT 24 Alkaline Phosphatase 57 Troponin I High Sens < 2.3 L Total Protein 7.6 Albumin 3.7 Globulin 3.9 Albumin/Globulin Ratio 0.9 L Lipase 21 L - Rads (name of study) cxr Radiology: Prelim report reviewed, EMP read contemporaneously, See rad report (No acute cardiopulmonary abnormality. ) PD MEDICAL DECISION MAKING - ED course Complexity details: reviewed results, re-evaluated patient, considered differential (No ST elevation [place], no aortic dissection, no PE, no tension pneumothorax, no aortic aneurysm), d/w patient ED course: Patient with ongoing palpitations for years. Similar to her prior presentations. No acute findings on chest x-ray, EKG or laboratory testing. Patient states she is no longer symptomatic in the emergency department. We will have her follow-up with her doctor for further care. Patient counseled regarding signs and symptoms for which I believe and urgent re-evaluation would be necessary. Patient with good understanding of and agreement to plan and is comfortable going home at this time This document was made in part using voice recognition software. While efforts are made to proofread this document, sound alike and grammatical errors may occur. Departure - Departure Disposition: 01 Home, Self Care Clinical Impression: Palpitations Condition: Good Instructions: ED Palpitations Follow-Up: REGLA ESPINOSA ARNP [Primary Care Provider] - Within 1 week Comments: Follow-up with your doctor for further care. Return if you worsen. Your laboratory testing, EKG and x-ray are all normal today.
[2020-05-02 13:11] LABS: BASOPHILS % (AUTO) 0.7 %; EOSINOPHILS # (AUTO) 0.2 10^3/uL (0.0-0.7); EOSINOPHILS % (AUTO) 3.2 %; HCT - HEMATOCRIT 40.1 % (37.0-47.0); LYMPHOCYTES # (AUTO) 2.1 10^3/uL (1.5-3.5); LYMPHOCYTES % (AUTO) 36.4 %; MEAN CORPUSCULAR HEMOGLOBIN 28.4 pg (27.0-31.0); MEAN CORPUSCULAR HGB CONC 32.4 g/dL (32.0-36.0); MEAN CORPUSCULAR VOLUME 87.6 fL (81.0-99.0); MEAN PLATELET VOLUME 9.6 fL (7.9-10.8); MONOCYTES # (AUTO) 0.5 10^3/uL (0.0-1.0); MONOCYTES % (AUTO) 7.9 %; NEUTROPHILS % (AUTO) 51.6 %; PLT - PLATELET COUNT 291 10^3/uL (130-450); RED BLOOD COUNT 4.58 10^6/uL (4.20-5.40); RED CELL DISTRIBUTION WIDTH 13.1 % (12.0-15.0); WHITE BLOOD COUNT 5.7 x10^3/uL (4.8-10.8)
--- NOTE | 2020-05-02 13:25 | XRAY Report ---
PROCEDURE: Chest 1 View X-Ray INDICATIONS: palpitations TECHNIQUE: One view of the chest was acquired. COMPARISON: CXR 10/08/2018, 12/26/2017. FINDINGS: Surgical changes and devices: None. Lungs and pleura: No pleural effusions or pneumothorax. Lungs are clear. Mediastinum: Mediastinal contours appear normal. Heart size is normal. Bones and chest wall: No suspicious bony lesions. Overlying soft tissues appear unremarkable. IMPRESSION: No acute cardiopulmonary abnormality. Reviewed by: Phu Jay MD on 05/02/2020 12:24 PM [facility] Approved by: Phu Jay MD on 05/02/2020 12:24 PM [facility] Station ID: [id number]
[2020-05-02 13:27] LABS: ALBUMIN 3.7 g/dL (3.2-5.5); ALBUMIN/GLOBULIN RATIO 0.9 (1.0-2.2); BILIRUBIN,TOTAL 0.6 mg/dL (0.2-1.0); CALCIUM 8.9 mg/dL (8.5-10.3); CREATININE 0.6 mg/dL (0.4-1.0); POTASSIUM 3.7 mmol/L (3.5-5.0); TOTAL PROTEIN 7.6 g/dL (6.7-8.2)
[2020-05-02 14:20] VITALS: BP 136/90
== END 2020-05-02 14:12 | disposition home or self-care (01) ==
LOC: ED 12:01
DX: R00.2 Palpitations (principal)
CPT/HCPCS: 36415; 80053; 83690; 84484; 85025; 93005; 99284